=== PATIENT | female | born 1935 | race Caucasian/White ===

== ENCOUNTER 2019-06-28 12:37 | Outpatient (CLI) | payer MEDICARE, SELFPAY ==
--- NOTE | ~2019-06-28 | XR_ITS ---
XR chest 2V DATE: 06/28/2019 12:59 INDICATION: Cough, shortness of breath TECHNIQUE: PA and lateral views COMPARISON: 12/02/2018 AP and lateral chest FINDINGS: There are bibasilar infiltrates and/atelectasis and small pleural effusions, left greater t isaac right. The mid and upper lung peace are clear. Heart size appears within normal limits. No hilar or mediastinal enlargement is evident. Surgical clips overlie the right upper quadrant, consistent with cholecystectomy. Osteopenia. IMPRESSION: Bibasilar infiltrate and/atelectasis and small bilateral pleural effusions, left greater than right Reviewed, dictated and finalized at location A. IMPRESSION: Bibasilar infiltrate and/atelectasis and small bilateral pleural ef fusions, left greater than right
== END 2019-06-28 12:38 | disposition home or self-care (01) ==
PROVIDERS: PCP Family Medicine; Visit Provider Family Medicine
DX: R05 Cough (principal); R06.02 Shortness of breath; R91.8 Other nonspecific abnormal finding of lung field
CPT/HCPCS: 71046

== ENCOUNTER 2019-07-18 11:03 | Outpatient (CLI) | payer MEDICARE, SELFPAY ==
--- NOTE | ~2019-07-18 | XR_ITS ---
XR chest 2V 07/18/2019 11:57 Indication: Pleural effusion. Cough. Procedure: 2 view chest Comparison: Comparison to multiple prior studies sequentially, with oldest reviewed study dated 11/07. Findings: Left basilar airspace disease. Moderate left and small right pleural effusions. No pneumoth orax. No edema. Impression: 1: Left basilar airspace consolidation may represent atelectasis and/or pneumonia. 2: Bilateral pleural effusions, left greater than right. Reviewed, dictated and finalized at location A. Impression: 1: Left basilar airspace consolidation may represent atelectasis and/or pneumon ia. 2: Bilateral pleural effusions, left greater than right.
--- NOTE | ~2019-07-18 | CT_ITS ---
EXAMINATION:CT chest w con DATE: 07/18/2019 12:13 INDICATION: Cough. Pleural effusion. TECHNIQUE: Computed tomography (CT) of the chest was performed with 75 mL Omnipaque 350 intravenous c ontrast. Automated exposure control and iterative reconstruction technique were employed. The dose-le ngth product (DLP) was 187.01 mGy-cm. COMPARISON: CT abdomen and pelvis 12/02/2018 FINDINGS: There are small right and moderate-sized left pleural effusions. There is mild atelectasis bilaterally. There is a 5 mm nodule in left thyroid lobe, likely not clinically significant. The hear t size is normal. There is a small pericardial effusion with pericardial thickening. There are change s of cholecystectomy. There is severe thoracic and cervical spondylosis. IMPRESSION: 1. Small right and moderate-sized left pleural effusions, new from 12/02/2018. 2. Small pericardial effusion with pericardial thickening, new from 12/02/2018. Reviewed, dictated and finalized at location A.
[2019-07-18 12:03] LABS: Estimated Glomerular Filt Rate > 60
== END 2019-07-18 11:04 | disposition home or self-care (01) ==
PROVIDERS: PCP Family Medicine; Visit Provider Family Medicine
DX: J90 Pleural effusion, not elsewhere classified (principal)
CPT/HCPCS: 36415; 71046; 71260; Q9967

== ENCOUNTER 2019-07-22 11:05 | Inpatient (IN) | payer MEDICARE, SELFPAY ==
--- NOTE | ~2019-07-22 | XR_ITS ---
EXAMINATION: XR chest 1V portable DATE: 07/24/2019 05:28 INDICATION: Pleural effusions. TECHNIQUE: A single frontal view of the chest was obtained. COMPARISON: Chest 2 views 07/23/2019 FINDINGS: There are small pleural effusions. There are airspace opacities at the lung bases. No pneum othorax. The heart size is normal. IMPRESSION: 1. Stable small pleural effusions. 2. Stable airspace opacities at the lung bases, consistent with atelectasis or less likely pneumonia. Reviewed, dictated and finalized at location A.
--- NOTE | ~2019-07-22 | US_ITS ---
EXAMINATION: US thoracentesis DATE: 07/23/2019 15:00 INDICATION: pleural effusion TECHNIQUE: The procedure and its risks, benefits, and alternatives were discussed with the patient. P otential risks discussed included bleeding, infection, and pneumothorax. The patient understood the r isks and agreed to proceed. The skin was prepped and draped in sterile fashion. 1% lidocaine was used for local anesthesia. Under ultrasound guidance, a 5 Fr catheter with trochar was advanced into the left pleural effusion. Fluid was aspirated. The catheter was removed, and a dressing was applied. The re were no immediate complications. FINDINGS: Ultrasound images demonstrate a left pleural effusion and the catheter within the fluid. IMPRESSION: 1. Successful ultrasound-guided thoracentesis yielding 700 mL of ada-colored fluid. Reviewed, dictated and finalized at location A.
--- NOTE | ~2019-07-22 | CT_ITS ---
EXAMINATION: CTA chest PE protocol DATE: 07/22/2019 13:48 INDICATION: Shortness of breath. TECHNIQUE: Computed tomography angiography (CTA) of the chest was performed with 100 mL Omnipaque-350 intravenous contrast timed to evaluate the pulmonary arteries. Coronal maximum intensity projection 3D-reconstructions were created by the technologist. Automated exposure control and iterative reconst ruction technique were employed. The dose-length product was 383.32 mGy-cm. COMPARISON: Chest CT 07/18/2019 FINDINGS: There is mild scarring at the lung apices. There are small right and moderate-sized left pl eural effusions. There is mild atelectasis bilaterally. There is dependent passive atelectasis in lef t lower lobe. The heart size is normal. There is a small pericardial effusion with pericardial thicke marybel. There is no pulmonary embolus. There are changes of cholecystectomy. There is a 6 mm cyst in th e liver. There is severe cervical and thoracic spondylosis. IMPRESSION: 1. No pulmonary embolus. 2. Small right and moderate-sized left pleural effusions, stable from 07/18/2019. 3. Small pericardial effusion with pericardial thickening, stable from 07/18/2019. Reviewed, dictated and finalized at location A. IMPRESSION: 1. No pulmonary embolus. 2. Small right and moderate-sized left pleural effusions, stable from 07/18/2019 . 3. Small pericardial effusion with pericardial thickening, stable from 0.
--- NOTE | ~2019-07-22 | XR_ITS ---
EXAMINATION: XR chest 2V DATE: 07/23/2019 14:54 INDICATION: Left pleural effusion status post thoracentesis. TECHNIQUE: Frontal and lateral views of the chest were obtained. COMPARISON: Chest 2 views 07/22/2019, chest CT 07/22/2019 FINDINGS: There are small pleural effusions. There are airspace opacities at the lung bases with inte rval improvement, likely atelectasis. No pneumothorax. The heart size is normal. Surgical clips in th e right upper quadrant are likely from cholecystectomy. IMPRESSION: 1. Small pleural effusions with improvement on the left status post thoracentesis. Reviewed, dictated and finalized at location A. IMPRESSION: 1. Small pleural effusions with improvement on the left status post thoracentes is.
--- NOTE | ~2019-07-22 | XR_ITS ---
EXAMINATION: XR chest 2V DATE: 07/22/2019 11:40 INDICATION: Shortness of breath and cough TECHNIQUE: PA and lateral views of the chest are obtained. COMPARISON: 07/18/2019 FINDINGS: There are stable small right and moderate-sized left pleural effusions. There are also stab le airspace opacities of the lung bases. No pneumothorax is identified. The heart size is normal. Cho lecystectomy clips are noted in the right upper quadrant. There is severe thoracic spondylosis. IMPRESSION: 1. Stable moderate-sized left and small right pleural effusions. 2. Stable bibasilar airspace opacities, likely atelectasis. Reviewed, dictated and finalized at location A.
[2019-07-22 11:15] VITALS: BP 149/74; PULSE 93; RESP 20; TEMP 36.7; O2SAT 98
[2019-07-22 11:18] VITALS: O2SAT 98
--- NOTE | 2019-07-22 11:19 | ECG_ITS ---
Measurements Intervals [place] Rate: 91 P: 50 MS: 173 QRS: 7 QRSD: 88 T: 27 QT: 316 QTc: 390 Interpretive Statements SINUS RHYTHM BASELINE ARTIFACT- I, II, III, AVL, AVF, V4-V6 BORDERLINE ECG Electronically Signed On 07-22-2019 11:22:17 CDT by Angel Melendez D.O.
[2019-07-22 11:48] LABS: Basophils Absolute Auto 0.1 K/mm3 (0.0-0.1); Basophils Percent Auto 0.9 % (0.2-1.2); Eosinophils Absolute Auto 0.2 K/mm3 (0-0.3); Eosinophils Percent Auto 2.3 % (0-4.4); Hematocrit 38.1 % (37.0-47.0); Hemoglobin 12.7 g/dL (12.0-15.0); Immature Granulocyte Absolute 0.03 K/mm3 (0.00-0.031); Immature Granulocyte Percent A 0.5 % (0-0.5); Lymphocytes Percent Auto 21.6 % (18.3-44.2); Mean Corpuscular HGB Conc 33.3 g/dl (32-36); Mean Corpuscular Hemoglobin 31.2 pg (26-34); Mean Corpuscular Volume 93.6 fl (80-100); Mean Platelet Volume 9.8 fl (7.4-10.4); Monocytes Absolute Auto 0.9 K/mm3 (0.1-0.6); Monocytes Percent Auto 14.2 % (2.6-8.5); Neutrophils Absolute Auto 3.9 K/mm3 (1.3-6.7); Neutrophils Percent Auto 60.5 % (45.5-73.1); Platelet Count Result 344 k/mm3 (150-375); Red Blood Count 4.07 M/mm3 (4.2-5.4); Red Cell Distribution Width 12.4 % (11.5-14.5); White Blood Count 6.5 K/mm3 (4.5-10.0)
[2019-07-22 11:56] LABS: Prothrombin Time 12.8 Seconds (11.1-14.7)
[2019-07-22 11:57] LABS: Partial Thromboplastin Time 32.3 SECONDS (22.3-36.8)
[2019-07-22 12:01] LABS: Blood Urea Nitrogen 13 mg/dL (7-17); Calcium 9.1 mg/dL (8.4-10.2); Carbon Dioxide 29 mmol/L (22-30); Chloride 97 mmol/L (98-107); Estimated CRCL calculation 57 ml/min; Estimated Glomerular Filt Rate > 60; Glucose 99 mg/dL (65-105); Sodium 134 mmol/L (137-145)
[2019-07-22 12:12] LABS: NT Pro B Type Natriuretic Pept 253 PG/ML (5-100); Troponin I < 0.012 ng/mL (0.000-0.034)
--- NOTE | 2019-07-22 12:25 | PC.NURSE ---
called lab and added on a D Dimer
--- NOTE | 2019-07-22 12:32 | ED.GENADULT ---
HPI - General Adult General Chief complaint: Shortness of Breath/Dyspnea Stated complaint: SENT BY DR. FAY/ [facility] Time Seen by Provider: 07/22/19 12:17 History of Present Illness HPI narrative: Patient is a 83 y/o female complaining of mild SOB for shortness of breath for 1 week. She states that her SOB is worse with walk or other kind of exertion. She has no cough, fever, chest pain or leg swelling. She was told that she has some fluid. She states that she was diagnosed with pneumonia approximately 2 weeks ago. Related Data Home Medications Medication Instructions Recorded Confirmed simvastatin 20 mg tablet 20 mg PO DAILY 12/10/18 12/10/18 alendronate 70 mg PO WEEKLY 07/22/19 aspirin 325 mg PO DAILY 07/22/19 olmesartan [Benicar] 20 mg PO DAILY 07/22/19 simvastatin mg 07/22/19 Allergies Allergy/AdvReac Type Severity Reaction Status Date / Time amoxicillin Allergy Mild Rash Verified 07/22/19 11:19 Penicillins Allergy Unknown AMOXICILLIN Verified 07/22/19 11:19 Review of Systems Constitutional: Constitutional: Denies chills, Denies fever(s), Denies headache(s) and Denies weakness Eyes: Eyes: Denies blurry vision ENT: Denies headache(s) and Denies neck pain Cardiovascular: Cardiovascular: Denies chest pain and Reports dyspnea Respiratory: Respiratory: Denies cough and Reports dyspnea Gastrointestinal: Gastrointestinal: Denies abdominal pain, Denies diarrhea, Denies nausea and Denies vomiting Genitourinary: Genitourinary: Denies hematuria and Denies dysuria Musculoskeletal: Musculoskeletal: Denies back pain and Denies neck pain Neurologic: Denies headache(s) and Denies weakness FORMERLY [facility], 1928–1983 Past Medical History Medical History HLD (hyperlipidemia) HTN (hypertension) Pancreatitis Surgical History Surgical History Hx of tonsillectomy Family History Family History Other Family history of cardiovascular disease Family history of malignant neoplasm Social History Social History Smoking status: Never smoker Second hand tobacco smoke exposure: No Alcohol intake: never Exam Const: General: no acute distress and well developed Orientation/consciousness: oriented to person, oriented to place, oriented to time and patient oriented x3 HENMT: Head: normocephalic Ears: external ears normal General nose exam: Normal external nose present Eyes: General: appearance normal, both eyes and all related structures Conjunctivae: conjunctivae normal Neck: Neck: normal visual inspection and full ROM Chest: Chest palpation & inspection: normal inspection of the chest and no tenderness Resp: Effort & Inspection: normal respiratory effort Auscultation: clear to auscultation bilaterally Cardio: Rate: regular rate Rhythm: regular rhythm GI: GI Palp: No abdominal tenderness and Yes Soft to palpation Skin: General skin exam: normal color and turgor normal Neuro: General: oriented to person, oriented to place, oriented to time and patient oriented x3 Cognition (Neuro): normal cognition Extrem: General: normal to inspection, full ROM and no pedal edema Psych: Appearance: grossly normal Mental Status: mental status grossly normal Affect: normal affect Course Consultations Consultation #1: Discussed with Amanda, who agrees to admit to Dr. Avila Date: 07/22/19 Time: 14:38 Vital Signs Vital signs: Vital Signs Temperature 36.7 C 07/22/19 11:15 Pulse Rate 93 07/22/19 11:15 Respiratory Rate 07/22/19 11:15 Blood Pressure 149/74 H 07/22/19 11:15 Pulse Oximetry 98 07/22/19 11:15 Temperature 36.7 C 07/22/19 15:59 Pulse Rate 87 07/22/19 15:59 Respiratory Rate 07/22/19 15:59 Blood Pressure 136/89 07/22/19 15:59 Pulse Oximetry 97 07/22/19 15:59
[2019-07-22 13:17] LABS: D Dimer 3.27 ug/mL (<0.48)
[2019-07-22 15:59] VITALS: BP 136/89; PULSE 87; RESP 20; TEMP 36.7; O2SAT 97
[2019-07-22 16:48] VITALS: BP 120/70; PULSE 90; RESP 20; TEMP 36.7; O2SAT 96
[2019-07-22 17:30] VITALS: BMI 27.3
[2019-07-22 20:00] VITALS: PULSE 84
--- NOTE | 2019-07-22 20:27 | ADMGEN ---
This patient, Luna Iyer, was admitted to 3 [facility] Surg Room 311-01. Patient/family oriented to hospital policies and general routines including ID bracelet, bed and alarms, visiting hours, pain management, procedures, bathroom and other care routines, personal items, smoking policy, room service/diet, and visiting hours. Valuables list has been completed. Information on how to activate the Rapid Response Team has been discussed. Patient/Family are encouraged to report perceived risks to care and to ask questions if they do not understand what they are told or what they should do.
--- NOTE | 2019-07-22 20:45 | PM.IMHP ---
H&P: HPI History of Present Illness Chief complaint: Shortness of breath. Narrative: Luna Iyer is an 83-year-old female with hypertension, hyperlipidemia, asthma, psoriasis, and GERD who presented to the emergency department earlier this afternoon at the direction of her primary care provider for evaluation of shortness of breath. She notes mild shortness of breath for the past several weeks for which she has been seeing . On previous imaging, she was noted to have small bilateral pleural effusions and she was started on a diuretic, however repeat imaging showed enlarging left pleural effusion. Chest CT taken on 07/18/2019 showed a small right and moderate size left pleural effusions as well as a small pericardial effusion with pericardial thickening, all findings were new compared to prior imaging in November 2018. Over the past several days, she reports increasing shortness of breath, nonproductive cough, and orthopnea. With further questioning, she does mention a dull discomfort across the midsternum with deep inspiration, that seems to improve somewhat if she leans forward. She has no history of cardiac disease, liver disease, kidney disease, or malignancy. She denies fever, chills, and sweats. Appetite has been good and she denies nausea and vomiting. Weight has remained stable. No rashes or joint swelling/redness. Review of Systems Review of Systems: Narrative: Twelve systems were reviewed with pertinent positives and negatives as per HPI. Weight has remained stable. She has never had an abnormal mammogram. No history of colon polyps. She denies lower extremity edema. No recent travel. No history of venous thromboembolism. She denies nausea, vomiting, diarrhea. No dysuria or hematuria. She does have psoriasis that mainly affects her ankles. Except as documented, all other systems were reviewed and are negative. [facility] Past Medical History Medical History (Updated 07/22/19 @ 22:41 by Amanda Syed PA-C) Essential hypertension Gastroesophageal reflux disease Hyperlipidemia Osteoporosis Pancreatitis (~11/2018) Psoriasis Surgical History Surgical History (Updated 07/22/19 @ 22:42 by Amanda Syed PA-C) History of laparoscopic cholecystectomy (~09/2003) History of tonsillectomy Family History Family History Other Family history of cardiovascular disease Family history of malignant neoplasm Social History Social History (Updated 07/22/19 @ 20:39 by Amanda Syed PA-C) Social History: The patient lives in [place]. She is a lifelong nonsmoker. She drinks maybe 4 alcoholic beverages a week. No illicit substance use. She designates her son, Steve, as her surrogate decision maker and she wishes to be a full code. Smoking status: Never smoker Alcohol intake: current Drinks per week: 4 Substance use: never Gender identity (if verbalized by the patient): Female Spiritual care concerns: No Meds Home Medications and Allergies Home Medications Medication Instructions Recorded Confirmed Type simvastatin 20 mg tablet 20 mg PO DAILY 12/10/18 07/22/19 History esomeprazole magnesium 40 mg 40 mg PO DAILY #90 cap 02/14/19 07/22/19 Rx capsule,delayed release acetaminophen [Tylenol] 650 mg PO Q6H PRN 07/22/19 07/22/19 History mometasone [Asmanex HFA] 2 puff INHALATION Q12H 07/22/19 07/22/19 History olmesartan [Benicar] 20 mg PO DAILY 07/22/19 07/22/19 History Allergies Allergy/AdvReac Type Severity Reaction Status Date / Time amoxicillin Allergy Mild Rash Verified 07/22/19 11:19 Penicillins Allergy Unknown AMOXICILLIN Verified 07/22/19 11:19 Vital Signs Vital Signs - 24 hr 07/22/19 11:15 07/22/19 11:18 07/22/19 15:59 Temperature 98.0 F 98.0 F Pulse Rate 93 87 Respiratory Rate 20 20 Blood Pressure 149/74 H 136/89 Pulse Oximetry 98 98 97 07/22/19 16:48 Temperature 98.0 F Pulse Rate 90 Re
[2019-07-22 22:00] VITALS: BP 133/63; PULSE 82; RESP 18; TEMP 36.8; O2SAT 96
[2019-07-23] VITALS (9 sets, daily range): BP systolic 110–168; BP diastolic 57–70; PULSE 80–107; RESP 18–20; TEMP 36.2–36.8; O2SAT 94–98
--- NOTE | 2019-07-23 06:00 | ECHO_ITS ---
Patient Info Name: Luna Iyer Age: 83 years : 1935 Gender: Female Ht: 66 in Wt: 170 lbs BSA: 1.91 m2 HR: 82 bpm BP: 110 / 57 mmHg Heart Rhythm: Sinus Rhythm Technical Quality: Fair Exam Date: 07/23/2019 9:39 AM Exam Location: [facility] Pulmonary Patient Status: Inpatient Admit Date: 07/22/2019 Staff Ordering Physician: Yvette Tate MD [employer] Machine Setter: Mendez Garvin RDCS Attending Provider: Bibiana Barriga PA-C Referring Physician: Bebeto HOLM; Exam Type: CA echo doppler color flow Study Info Indications R06.02 - Shortness of breath Complete two-dimensional, color flow and Doppler transthoracic echocardiogram is performed with contrast to opacify the left ventricle and to improve the deliniation of the left ventricle endocardial borders. Contrast/Agitated Saline Contrast/Ag. Saline: Definity Amount: 1.00 ml Administered By: Allison Garrido RN Existing IV Access: Yes History/Risk Factors SOB, HTN, small pericardial effusion w/ thickened pericardium, Orthopnea. Summary 1. Left ventricular chamber dimension is normal. 2. Definity contrast administered improved wall motion interpretation. 3. Left ventricular systolic function is normal, estimated at 65-70%. 4. The left ventricular diastolic function is grade I diastolic dysfunction. 5. E/e' 14 is mildly elevated. 6. Right ventricular systolic function is reduced based on TAPSE 1.3 cm. 7. There is trace tricuspid valve regurgitation. 8. No pulmonary hypertension, estimated pulmonary arterial systolic pressure is 27 mmHg. 9. Normal inferior vena cava with <50% collapse upon inspiration consistent with elevated right atrial pressure, 5 mmHg. Left Ventricle Definity contrast administered improved wall motion interpretation. E/e' 14 is mildly elevated. Left ventricular chamber dimension is normal. Left ventricular systolic function is normal, estimated at 65-70%. The left ventricular diastolic function is grade I diastolic dysfunction. Right Ventricle Right ventricular systolic function is reduced based on TAPSE 1.3 cm. Right ventricular chamber dimension is not well visualized. Left Atria Left atrial chamber dimension is normal. Right Atria Right atrial chamber dimension is not well visualized. Aortic Valve The aortic valve is trileaflet. There is no aortic valve stenosis. There is no aortic valve regurgitation. Pulmonic Valve There is no pulmonic regurgitation. Mitral Valve There is no mitral valve stenosis. There is no mitral valve regurgitation. Tricuspid Valve There is trace tricuspid valve regurgitation. No pulmonary hypertension, estimated pulmonary arterial systolic pressure is 27 mmHg. Pericardium/Pleural There is no pericardial effusion. Inferior Vena Cava Normal inferior vena cava with <50% collapse upon inspiration consistent with elevated right atrial pressure, 5 mmHg. Aorta The aortic root size at the sinus of Valsalva is normal. Left Ventricular Outflow Tract Name Value Normal LVOT 2D LVOT Diameter 1.8 cm LVOT Doppler LVOT Peak G
[2019-07-23 06:33] LABS: Basophils Absolute Auto 0.1 K/mm3 (0.0-0.1); Eosinophils Absolute Auto 0.2 K/mm3 (0-0.3); Eosinophils Percent Auto 3.1 % (0-4.4); Hemoglobin 11.8 g/dL (12.0-15.0); Immature Granulocyte Absolute 0.03 K/mm3 (0.00-0.031); Immature Granulocyte Percent A 0.5 % (0-0.5); Lymphocytes Absolute Auto 1.26 K/mm3 (0.9-3.2); Mean Corpuscular HGB Conc 32.8 g/dl (32-36); Mean Corpuscular Hemoglobin 31.4 pg (26-34); Mean Corpuscular Volume 95.7 fl (80-100); Mean Platelet Volume 9.8 fl (7.4-10.4); Monocytes Absolute Auto 0.8 K/mm3 (0.1-0.6); Neutrophils Absolute Auto 3.4 K/mm3 (1.3-6.7); Neutrophils Percent Auto 59.4 % (45.5-73.1); Platelet Count Result 327 k/mm3 (150-375); Red Blood Count 3.76 M/mm3 (4.2-5.4); Red Cell Distribution Width 12.4 % (11.5-14.5); White Blood Count 5.7 K/mm3 (4.5-10.0)
[2019-07-23 06:41] LABS: INR 1.1; Prothrombin Time 13.5 Seconds (11.1-14.7)
[2019-07-23 06:48] LABS: Alanine Aminotransferase 10 U/L (4-35); Albumin Level 3.7 g/dL (3.5-5.1); Alkaline Phosphatase 48 U/L (38-126); Amylase 171 U/L (30-110); Aspartate Amino Transferase 18 U/L (14-36); Bilirubin,Total 0.4 mg/dL (0.2-1.3); Blood Urea Nitrogen 12 mg/dL (7-17); Calcium 8.5 mg/dL (8.4-10.2); Carbon Dioxide 28 mmol/L (22-30); Chloride 97 mmol/L (98-107); Estimated CRCL calculation 65 ml/min; Estimated Glomerular Filt Rate > 60; Glucose 97 mg/dL (65-105); Lactate Dehydrogenase 329 U/L (313-618); Potassium 3.8 mmol/L (3.4-5.0); Sodium 132 mmol/L (137-145)
[2019-07-23] MEDS: OLMESARTAN MEDOXOMIL 20 MG TABLET PO (08:14)
[2019-07-23] MEDS: PANTOPRAZOLE 40 MG TABLET PO (08:14)
[2019-07-23] MEDS: SIMVASTATIN 20 MG TABLET PO (08:15)
[2019-07-23] MEDS: PERFLUTREN LIPID MICROSPHERES 1.5 ML VIAL DILUTED TO 10 ML TOTAL VOLUME IV PUSH (10:16)
[2019-07-23 12:03] LABS: Free T4 Free Thyroxine Reflex 1.06 ng/dL (0.78-2.19)
[2019-07-23 12:59] LABS: Total Triiodothyronine (T3) 1.12 NG/ML (0.97-1.69)
--- NOTE | 2019-07-23 13:34 | PM.IMPN ---
Progress Note: A&P Assessment and Plan (1) Pleural effusion: Code(s): J90 - Pleural effusion, not elsewhere classified Status: Acute Assessment and Plan: Patient presents with worsening shortness of breath over the last few weeks being evaluated by PCP; persistent effusion despite diuretic recently prescribed by PCP. She also just completed a 10-day course of levaquin and a prednisone taper. CTA chest demonstrated small right and moderate left pleural effusions, no PE. Thoracentesis this afternoon and Lasix IV daily; monitor I&Os and renal function. All other pleural fluid studies are pending but pH is within normal limits. Obtain repeat CXR in AM to ensure fluid is not rapidly accumulating; otherwise if she remains stable anticipate possible discharge tomorrow. (2) Pericardial effusion: Code(s): I31.3 - Pericardial effusion (noninflammatory) Status: Ruled-out Assessment and Plan: Echocardiogram demonstrates no pericardial effusion. No EKG changes. No evidence of tamponade; hemodynamics are stable. (3) Essential hypertension: Code(s): I10 - Essential (primary) hypertension Status: Acute Assessment and Plan: Last . Maintained on home olmesartan and now with Lasix; monitor BP and adjust treatment if needed. Hydralazine PRN added if needed. (4) Hyperlipidemia: Code(s): E78.5 - Hyperlipidemia, unspecified Status: Acute Assessment and Plan: Continue home statin therapy. LFTs are within normal limits. (5) Gastroesophageal reflux disease: Code(s): K21.9 - Gastro-esophageal reflux disease without esophagitis Status: Acute Assessment and Plan: No issues today. Continue protonix. Subjective Date/time seen: 07/23/19 13:00 Interval history: Ms. Iyer is an 83yo F admitted for shortness of breath with pleural effusions. She reports feeling more short of breath when up walking and says she feels better when the oxygen is on. She denies any chest pain. She is hungry having been NPO for thoracentesis today, but denies any nausea or vomiting. Review of Systems Review of Systems: Narrative: Twelve systems were reviewed with pertinent positives and negatives as per HPI. Exam Narrative: Exam Narrative: General: Female resting comfortably in bed in no acute distress. HEENT: Normocephalic, EOMI, oral mucosa moist. Cardiovascular: Rate and rhythm are regular. Respiratory: Decreased breath sounds DIPAK. Respirations are even and nonlabored. Abdomen: Soft, non-tender, non-distended, bowel sounds present. Extremities: Peripheral pulses intact. No edema. Neuro: No focal neurological deficits. Speech is clear. Objective Data Vital Signs Vital Signs: Last Vital Signs Temp 98.2 F 07/23/19 14:00 Pulse 107 H 07/23/19 14:56 Resp 19 07/23/19 14:56 BP 168/69 H 07/23/19 14:56 Pulse Ox 96 07/23/19 14:56 Intake/Output Intake/Output: Intake & Output 07/20/19 07/21/19 07/22/19 07/23/19 23:59 23:59 23:59 23:59 Intake Total 0 170 Output Total 175 Balance 0 -5 Meds/Results Medications: Active Medications Generic Name Dose Route Start Last Admin Trade Name Freq PRN Reason Stop Dose Admin Acetaminophen 650 mg 07/22/19 20:42 Tylenol Tablet PO Q6H PRN Pain (Scale Score 1-3) Fluticasone Propionate 2 puff 07/23/19 08:00 07/23/19 08:20 Flovent 110 Mcg INHALATION 2 puff Q12HRT ALLISON Administration Olmesartan 20 mg 07/23/19 09:00 07/23/19 08:14 Benicar PO 20 mg DAILY ALLISON Administration Pantoprazole Sodium 40 mg 07/23/19 09:00 07/23/19 08:14 Protonix PO 40 mg QAM ALLISON Administration Simvastatin 20 mg 07/23/19 09:00 07/23/19 08:15 Zocor PO 20 mg DAILY ALLISON Administration Radiology Results: ITS Impr
--- NOTE | 2019-07-23 14:22 | PC.NURSE ---
To Radiology per [[facility] ]
[2019-07-23 15:00] LABS: pH Pleural Fluid 7.488 (7.210-7.500)
[2019-07-23 16:30] LABS: Appearance Pleural Fluid Cloudy (Clear); Color Pleural Fluid Yellow (Colorless); Lymphocytes Pleural Fluid 80 %; Macrophages Pleural Fluid 1 %; Mesothelial Cells Pleural Flui 3 %; Monocytes Pleural Fluid 7 %; Neutrophils Pleural Fluid 9 % (0-25); Nucleated Cell Pleural Fluid 1042 /uL (0-1000); Pleural fluid source Pleural fluid; RBC Pleural Fluid 6623 /uL (0-0)
[2019-07-23] MEDS: FUROSEMIDE INJ 40 MG/4 ML VIAL IV PUSH (18:18)
--- NOTE | 2019-07-23 20:04 | PC.NURSE ---
Return from Radiology per STRETCHER TOLERATE PROCEDURE WELL. BANDAID INTACT AND DRY TO LEFT BACK. PT STATES SHE CAN BREATHE BETTER . [ ]
[2019-07-24] VITALS: PULSE 94
[2019-07-24 04:00] VITALS: PULSE 86
[2019-07-24 06:00] VITALS: BP 156/59; PULSE 82; RESP 18; TEMP 36.3; O2SAT 95
[2019-07-24 06:50] LABS: Blood Urea Nitrogen 12 mg/dL (7-17); Calcium 8.3 mg/dL (8.4-10.2); Carbon Dioxide 30 mmol/L (22-30); Chloride 97 mmol/L (98-107); Estimated CRCL calculation 50 ml/min; Estimated Glomerular Filt Rate > 60; Glucose 112 mg/dL (65-105); Magnesium 1.9 mg/dL (1.6-2.3); Phosphorus 4.1 mg/dL (2.5-4.5); Potassium 3.5 mmol/L (3.4-5.0); Sodium 132 mmol/L (137-145)
[2019-07-24 08:00] VITALS: PULSE 82; PULSE 84; RESP 18; O2SAT 95
[2019-07-24] MEDS: ACETAMINOPHEN 325 MG TABLET 650 MG PO (08:05)
[2019-07-24] MEDS: PANTOPRAZOLE 40 MG TABLET PO (08:07)
[2019-07-24] MEDS: SIMVASTATIN 20 MG TABLET PO (08:07)
[2019-07-24] MEDS: OLMESARTAN MEDOXOMIL 20 MG TABLET PO (08:07)
[2019-07-24] MEDS: FUROSEMIDE INJ 40 MG/4 ML VIAL IV PUSH (08:07)
--- NOTE | 2019-07-24 11:07 | PM.DS ---
DS: Admitting Diagnosis Admitting Diagnosis Admitting Diagnosis: Pleural effusion, not elsewhere classified DS: Discharge Diagnosis Discharge Diagnosis (1) Pleural effusion: Code(s): J90 - Pleural effusion, not elsewhere classified Status: Acute Assessment and Plan: Date of Service 07/24/19 Ms. Iyer is an 83yo F with history of hypertension, hyperlipidemia, and GERD who presented to the ED for evaluation of worsening shortness of breath over the last few weeks. She had been undergoing evaluation for this by her PCP and recently completed a course of Levaquin and prednisone taper. CTA chest demonstrated small right and moderate left pleural effusions despite being prescribed HCTZ by PCP. She underwent ultrasound-guided thoracentesis 07/23/19 which yielded 700 mL of ada colored fluid. Gram stain of the pleural fluid was negative, but showed moderate white blood cells, pH was within normal limits. Repeat chest x-ray this morning demonstrated stable bilateral small pleural effusions. Initially there was concern for pericardial effusion, but echocardiogram demonstrated no pericardial effusion. Echocardiogram detailed below. No EKG changes noted. She was also maintained on Lasix daily, which she can continue for the next week and follow-up with PCP. She was stable and tolerating room air. She was feeling improved after thoracentesis and was hemodynamically stable for discharge 07/24/19 with instructions to follow-up with PCP within 1 week. Patient presents with worsening shortness of breath over the last few weeks being evaluated by PCP; persistent effusion despite diuretic recently prescribed by PCP. She also just completed a 10-day course of levaquin and a prednisone taper. CTA chest demonstrated small right and moderate left pleural effusions, no PE. Underwent thoracentesis and treated with Lasix. (2) Pericardial effusion: Code(s): I31.3 - Pericardial effusion (noninflammatory) Status: Ruled-out Assessment and Plan: Echocardiogram demonstrates no pericardial effusion. No EKG changes. No evidence of tamponade; hemodynamics are stable. (3) Essential hypertension: Code(s): I10 - Essential (primary) hypertension Status: Acute Assessment and Plan: Blood pressure on her home ARB, last BP 156/59. (4) Hyperlipidemia: Code(s): E78.5 - Hyperlipidemia, unspecified Status: Acute Assessment and Plan: Continue home statin therapy. LFTs are within normal limits. (5) Gastroesophageal reflux disease: Code(s): K21.9 - Gastro-esophageal reflux disease without esophagitis Status: Acute Assessment and Plan: No issues today. Continue protonix. DS: Summary Time Spent with Patient Time attestation: Total time spent providing and/or coordinating discharge services: 35 minutes Exam Narrative: Exam Narrative: Last Vital Signs Temp 97.3 F L 07/24/19 06:00 Pulse 84 07/24/19 08:00 Resp 18 07/24/19 08:00 BP 156/59 H 07/24/19 06:00 Pulse Ox 95 07/24/19 08:00 General: Female resting comfortably in bed in no acute distress. HEENT: Normocephalic, EOMI, oral mucosa moist. Cardiovascular: Rate and rhythm are regular. Respiratory: Decreased breath sounds DIPAK. Respirations are even and nonlabored. Abdomen: Soft, non-tender, non-distended, bowel sounds present. Extremities: Peripheral pulses intact. No edema. Neuro: No focal neurological deficits. Speech is clear. DS: Data Data Completed and Pending Pending studies at discharge: Pending at discharge 07/22/19 20:44 Cytology [PTH] Routine Labs on day of discharge
[2019-07-26 12:44] LABS: Glucose Pleural Fluid 100 mg/dL; LDH Pleural Fluid 197 U/L; Total Protein Pleural Fluid 4.2 g/dL
[2019-07-26 13:11] LABS: Amylase, Pleural Fluid 41 U/L
[2019-07-26 15:06] LABS: Albumin Pleural Fluid 2.9 g/dL
== END 2019-07-24 11:45 | disposition home or self-care (01) | DRG 188 ==
LOC: ANHED 16:10 → ANH3MEDSUR 16:30
PROVIDERS: Physician Assistant; Admitting Provider Family Medicine; Emergency Provider Emergency Medicine; PCP Family Medicine; Visit Provider Internal Medicine
DX: J90 Pleural effusion, not elsewhere classified (principal); I10 Essential (primary) hypertension; E78.5 Hyperlipidemia, unspecified; K21.9 Gastro-esophageal reflux disease without esophagitis; M81.0 Age-related osteoporosis without current pathological fracture; L40.9 Psoriasis, unspecified; J45.909 Unspecified asthma, uncomplicated; Z90.49 Acquired absence of other specified parts of digestive tract
CPT/HCPCS: 32555; 36415; 71045; 71046; 71275; 80048; 80053; 82042; 82150; 82945; 83615; 83735; 83880; 83986; 84100; 84157; 84439; 84443; 84478; 84480; 84484; 85025; 85380; 85610; 85730; 87070; 87075; 87205; 88104; 88108; 88305; 89051; 93005; 93306; 94640; 96374; 99285; A9270; G0378; J1940; Q9957; Q9967

== ENCOUNTER 2019-08-26 07:24 | Outpatient (CLI) | payer MEDICARE, SELFPAY ==
--- NOTE | ~2019-08-26 | XR_ITS ---
EXAMINATION: XR chest 2V DATE: 08/26/2019 07:42 INDICATION: Pleural effusion, not elsewhere classified. TECHNIQUE: Frontal and lateral views of the chest were obtained. COMPARISON: Chest single view 07/24/2019, chest CT 07/22/2019 FINDINGS: There is a small left pleural effusion. There are airspace opacities at the lung bases. No pneumothorax. The heart size is normal. IMPRESSION: 1. Stable small left pleural effusion. 2. Airspace opacities at the lung bases, consistent with atelectasis or less likely pneumonia. Reviewed, dictated and finalized at location A. IMPRESSION: 1. Stable small left pleural effusion. 2. Airspace opacities at the lung bases, consistent with atelectasis or less li ricky pneumonia.
[2019-08-26 08:06] LABS: Alanine Aminotransferase 13 U/L (4-35); Albumin Level 4.1 g/dL (3.5-5.1); Alkaline Phosphatase 49 U/L (38-126); Aspartate Amino Transferase 22 U/L (14-36); Bilirubin,Total 0.4 mg/dL (0.2-1.3); Blood Urea Nitrogen 13 mg/dL (7-17); Calcium 8.5 mg/dL (8.4-10.2); Carbon Dioxide 28 mmol/L (22-30); Chloride 97 mmol/L (98-107); Estimated Glomerular Filt Rate > 60; Glucose 103 mg/dL (65-105); Potassium 3.8 mmol/L (3.4-5.0); Sodium 133 mmol/L (137-145)
== END 2019-08-26 07:25 | disposition home or self-care (01) ==
PROVIDERS: PCP Family Medicine; Visit Provider Family Medicine
DX: J90 Pleural effusion, not elsewhere classified (principal); Z51.81 Encounter for therapeutic drug level monitoring; Z79.899 Other long term (current) drug therapy; R91.8 Other nonspecific abnormal finding of lung field
CPT/HCPCS: 36415; 71046; 80053

== ENCOUNTER 2020-09-28 10:06 | Emergency (ER) | payer MEDICARE, SELFPAY ==
[2020-09-28 10:35] VITALS: BP 155/61; PULSE 79; RESP 20; TEMP 36.3; O2SAT 98
--- NOTE | 2020-09-28 11:06 | ED.SKABFB ---
HPI - Skin/Abscess/Foreign Bdy General Chief complaint: Skin/Abscess/Foreign Body Stated complaint: rash Time Seen by Provider: 09/28/20 11:06 Source: patient and RN notes reviewed Mode of arrival: ambulatory Limitations: no limitations History of Present Illness HPI narrative: 84-year-old female presents to the [facility] with complaints of a rash. Rash to her back. States has been there for several weeks. States that she went to a doctor when visiting her daughter and received a shot and some oral steroids along with topical steroid triamcinolone. Patient describes it as being very itchy, worse at night. Denies any new ointments, lotions, detergents. Denies staying at hotels, stayed with her daughter. Denies any lip or tongue swelling. No shortness of breath, chest pain. MD complaint: rash Related Data Home Medications Medication Instructions Recorded Confirmed Asmanex HFA 2 puff INHALATION Q12H 07/22/19 09/28/20 acetaminophen [Tylenol] 650 mg PO Q6H PRN 07/22/19 07/22/19 alprazolam [Xanax] 0.25 mg PO TID PRN 09/28/20 09/28/20 cyclobenzaprine [Flexeril] 5 mg PO TID PRN 09/28/20 09/28/20 losartan 50 mg PO DAILY 09/28/20 09/28/20 tramadol 50 mg PO HS 09/28/20 09/28/20 Allergies Allergy/AdvReac Type Severity Reaction Status Date / Time amoxicillin Allergy Mild Rash Verified 09/28/20 10:59 Penicillins Allergy Unknown AMOXICILLIN Verified 09/28/20 10:59 Review of Systems Review of Systems: All systems reviewed & are unremarkable except as noted in HPI and below Constitutional: Constitutional: Reports no additional constitutional complaints, Denies chills and Denies fever(s) Eyes: Eyes: Reports no additional eye complaints ENT: Reports system reviewed and no additional complaints, except as documented Cardiovascular: Cardiovascular: Reports no additional cardiovascular complaints Respiratory: Respiratory: Reports no additional respiratory complaints Musculoskeletal: Musculoskeletal: Reports no additional musculoskeletal complaints Integumentary/Breasts: Skin/Breast: Reports as per HPI, Reports pruritus, Denies erythema and Reports rash Neurologic: Reports system reviewed and no additional complaints, except as documented Psychiatric: Psychiatric: Reports no additional psychiatric complaints Allergic/Immunologic: Allergic/Immunologic: Reports no additional allergic/immunologic complaints PMF Past Medical History Medical History (Updated 10/01/20 @ 10:32 by Alis Garcia) Essential hypertension Gastroesophageal reflux disease Hyperlipidemia Osteoporosis Pancreatitis (~11/2018) Psoriasis Psoriasis Surgical History Surgical History History of laparoscopic cholecystectomy (~09/2003) History of tonsillectomy Family History Family History Other Family history of cardiovascular disease Family history of malignant neoplasm Social History Social History Social History: The patient lives in [place]. She is a lifelong nonsmoker. She drinks maybe 4 alcoholic beverages a week. No illicit substance use. She designates her son, Steve, as her surrogate decision maker and she wishes to be a full code. Smoking status: Never smoker Alcohol intake: current Drinks per week: 4 Substance use: never Gender identity (if verbalized by the patient): Female Spiritual care concerns: No Comments At the time of my signature, I reviewed and agree with the nursing past medical, surgical, social, and family history. There is no relevant family history pertinent to the patient complaint. Exam Const: General: no acute distress, alert and ill appearing chronically Nutritional Appearance: well nourished Orientation/consciousness: patient oriented x3 Limitations: no limitations HENMT: Head: normal to inspection Ears: external ears normal, TM's nor
== END 2020-09-28 11:25 | disposition home or self-care (01) ==
PROVIDERS: Emergency Provider Nurse Practitioner; PCP Family Medicine
DX: L25.9 Unspecified contact dermatitis, unspecified cause (principal); I10 Essential (primary) hypertension; K21.9 Gastro-esophageal reflux disease without esophagitis; M81.0 Age-related osteoporosis without current pathological fracture
CPT/HCPCS: 99213; G0463

== ENCOUNTER → 2020-11-27 11:38 | Outpatient (CLI) | payer MEDICARE, SELFPAY ==
--- NOTE | ~2020-11-27 | XR_ITS ---
EXAMINATION: XR knee RT 3V DATE: 11/27/2020 12:21 INDICATION: Sprain of unspecified site of unspecified knee. Right knee pain. TECHNIQUE: 3 views of right knee were obtained. COMPARISON: None. FINDINGS: Bone alignment is normal. No fracture. There is mild tricompartmental osteoarthritis correc walt by tiny marginal osteophytes. No joint space narrowing. There is a small knee joint effusion. IMPRESSION: 1. Mild right knee osteoarthritis. 2. Small right knee joint effusion. Reviewed, dictated and finalized at location A.
== END ==
PROVIDERS: PCP Family Medicine; Visit Provider Physician Assistant
DX: M17.11 Unilateral primary osteoarthritis, right knee (principal); M25.461 Effusion, right knee
CPT/HCPCS: 73562

== ENCOUNTER 2023-05-29 09:25 | Inpatient (IN) | payer MEDICARE, SELFPAY ==
[2023-05-29] VITALS (20 sets, daily range): BP systolic 94–157; BP diastolic 55–82; PULSE 89–97; RESP 12–26; TEMP 36.3–37.4; O2SAT 94–100
--- NOTE | ~2023-05-29 | CT_ITS ---
EXAMINATION: CT brain wo con DATE: 05/29/2023 12:36 INDICATION: Fall. TECHNIQUE: Computed tomography (CT) of the head was performed without intravenous contrast. The mA wa s adjusted according to patient size. Iterative reconstruction technique was employed. The dose-lengt h product was 1210.67 mGy-cm. COMPARISON: None FINDINGS: There are scattered areas of low attenuation in the cerebral white matter, which is within normal limits for the patient's age. There is no intracranial hemorrhage, acute infarction, or abnorm al intracranial mass lesion. The ventricles are normal in size. There are likely changes of ocular le ns replacement surgeries. There is mild mucosal thickening in the paranasal sinuses. There is a trace right mastoid effusion. There is cerumen in left external auditory canal. IMPRESSION: 1. Normal aging brain. Reviewed, dictated and finalized at location E. IMPRESSION: 1. Normal aging brain.
--- NOTE | ~2023-05-29 | XR_ITS ---
EXAMINATION: XR surgery orthopedic DATE: 05/29/2023 15:10 CDT INDICATION: RIGHT HIP PINNING . TECHNIQUE: 2 fluoroscopic images of the right hip were obtained during right hip pinning, performed b ankur Harper MD. I was not present during the procedure. Fluoroscopy exposure time was 1 stevie te 17.5 seconds. Air Kerma 30.869 mGy. DAP 0.61-0 mGym2. COMPARISON: None FINDINGS/IMPRESSION: Fluoroscopic documentation of right hip pinning. Please refer to the operative note for complete proc edural details . Reviewed, dictated and finalized at location K.
--- NOTE | ~2023-05-29 | XR_ITS ---
XR chest 1V 05/29/2023 12:58 Indication: Shortness of breath Procedure: AP view of the chest Comparison: No prior studies for comparison. Findings: Heart size is normal. No focal air space disease, pulmonary edema, pleural effusion or susp ected pneumothorax. No acute osseous abnormality. Impression: 1: No acute cardiopulmonary disease. Reviewed, dictated and finalized at location B. Impression: 1: No acute cardiopulmonary disease.
--- NOTE | ~2023-05-29 | XR_ITS ---
EXAMINATION: XR hip BI 2V w AP pelvis DATE: 05/29/2023 12:58 INDICATION: Right hip pain post fall TECHNIQUE: Anteroposterior view of the pelvis and anteroposterior and cross-table lateral views of th e right hip and anteroposterior and frog-leg lateral views of the right hip and were obtained. COMPARISON: None. FINDINGS: Laterally impacted subcapital fracture of the proximal right femur with 15 degree varus angulation. N o other fractures identified. Bilateral hip and sacroiliac joint spaces appear relatively preserved. Soft tissues are unremarkable. IMPRESSION: 1. 15 degrees varus angulation and lateral impaction of a nondisplaced subcapital fracture of the pro ximal right femur. Reviewed, dictated and finalized at location A. IMPRESSION: 1. 15 degrees varus angulation and lateral impaction of a nondisplaced subcapit al fracture of the proximal right femur.
--- NOTE | ~2023-05-29 | XR_ITS ---
EXAMINATION: XR abdomen/kub 1V DATE: 05/31/2023 16:46 INDICATION: Constipation. TECHNIQUE: A supine view of the abdomen on 3 radiographs was obtained. COMPARISON: Abdomen radiograph 12/04/2018 FINDINGS: There are no dilated loops of bowel. There is a small volume of stool in the colon. There i s screw fixation of proximal right femur. Surgical clips in the right upper quadrant are likely from cholecystectomy. IMPRESSION: 1. Normal bowel gas pattern. Reviewed, dictated and finalized at location E.
--- NOTE | 2023-05-29 12:29 | ED.GENADULT ---
HPI - General Adult General Chief complaint: Fall Stated complaint: fell 05/26 co R hip pain Time Seen by Provider: 05/29/23 11:33 History of Present Illness HPI narrative: Luna Iyer is an 87 y/o female who presents today with complaints of right hip pain. She stats she had a ground level fall 2 days ago. She tripped and fell, + hitting her head, no LOC. She states she hasn't been able to put weight on her right leg since the fall. She also is complaining of a headache since the fall. 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 Essential hypertension Gastroesophageal reflux disease Hyperlipidemia Iron deficiency Left hip pain Lower respiratory tract infection Lumbar spine pain Osteoporosis Pancreatitis (~11/2018) Pericardial effusion Pleural effusion Pleural effusion Psoriasis Psoriasis Right knee DJD Right knee pain Trochanteric bursitis, left hip Surgical History Surgical History History of laparoscopic cholecystectomy (~09/2003) History of tonsillectomy History of tubal ligation Family History Family History Other Family history of cardiovascular disease Family history of malignant neoplasm Social History Social History Social History: The patient lives in [place]. She is a lifelong nonsmoker. She drinks maybe 4 alcoholic beverages a week. No illicit substance use. She designates her son, Steve, as her surrogate decision maker and she wishes to be a full code. Smoking status: Never smoker Alcohol intake: never Substance use: never Do You Feel Safe in your Home?: Yes Lack of Transportation: No Lack of Food: Never True Current Housing: I Have Housing Concerned About Future Housing: No Difficulty Paying Gas/Electric Bills: No Difficulty Paying for Meds: No Currently Unemployed: No Education: High School Diploma/GED Difficulty w/ Childcare or Family Care: No Living arrangements: alone Occupation/Education: retired Gender identity (if verbalized by the patient): Female Spiritual care concerns: No Exam Narrative: GENERAL: Well-appearing, well-nourished, and in no acute distress. HEAD: Normocephalic, atraumatic. EYES: PERRLA and EOMI. ENT: Nares clear, no rhinorrhea or epistaxis. Mucous membranes moist. Oropharynx without tonsillar hypertrophy exudate or other lesions. NECK: Supple. No adenopathy or masses. No carotid bruits or JVD CHEST: Clear to auscultation. No respiratory distress. No wheezes rales or rhonchi HEART: Regular rate and rhythm. No murmur heard. Normal peripheral pulses. ABDOMEN: Soft, nontender, nondistended, normal active bowel sounds. EXTREMITIES: no obvious deformity noted while sitting in chair. distal pulses present SKIN: Warm, dry, no rash. NEURO: No focal deficits. Alert and oriented x3. PSYCH: Normal mood and affect. Course Vital Signs Vital signs: Vital Signs Temperature 36.8 C 05/29/23 09:45 Pulse Rate 93 05/29/23 09:45 Respiratory Rate 18 05/29/23 09:45 Blood Pressure 129/82 05/29/23 09:45 Pulse Oximetry 96 05/29/23 09:45 Oxygen Delivery Room Air 05/29/23 09:45 Temperature 36.3 C L 05/29/23 16:20 Pulse Rate 94 05/29/23 17:45 Respiratory Rate 17 05/29/23 17:45 Blood Pressure 157/79 H 05/29/23 17:45 Puls
[2023-05-29] MEDS: fentaNYL CITRATE INJ (*CRX) 100 MCG/2 ML VIAL 50 MCG IV PUSH (13:42)
[2023-05-29 13:46] LABS: Basophils Absolute Auto 0.1 K/mm3 (0.0-0.1); Basophils Percent Auto 1.1 % (0.2-1.2); Eosinophils Absolute Auto 0.3 K/mm3 (0-0.3); Eosinophils Percent Auto 2.4 % (0-4.4); Hematocrit 40.4 % (37.0-47.0); Hemoglobin 13.2 g/dL (12.0-15.0); Immature Granulocyte Absolute 0.07 K/mm3 (0.00-0.031); Immature Granulocyte Percent A 0.6 % (0-0.5); Lymphocytes Absolute Auto 1.32 K/mm3 (0.9-3.2); Lymphocytes Percent Auto 10.7 % (18.3-44.2); Mean Corpuscular HGB Conc 32.7 g/dl (32-36); Mean Corpuscular Hemoglobin 31.5 pg (26-34); Mean Corpuscular Volume 96.4 fl (80-100); Mean Platelet Volume 9.5 fl (7.4-10.4); Monocytes Absolute Auto 1.3 K/mm3 (0.1-0.6); Monocytes Percent Auto 10.7 % (2.6-8.5); Neutrophils Absolute Auto 9.1 K/mm3 (1.3-6.7); Neutrophils Percent Auto 74.5 % (45.5-73.1); Platelet Count Result 273 k/mm3 (150-375); Red Blood Count 4.19 M/mm3 (4.2-5.4); Red Cell Distribution Width 13.2 % (11.5-14.5); White Blood Count 12.3 K/mm3 (4.5-10.0)
[2023-05-29] MEDS: LACTATED RINGERS 1,000 ML 30 ML IV CONT ×2 (14:30→17:14)
--- NOTE | 2023-05-29 14:48 | WPDANESEPPF ---
Anes - Initial Pre Proc Eval Procedure: Operation Date: 05/29/23 15:00 Proposed Procedures p Right Hip Pinning - Maury Harper MD Date/Time: 05/29/23 14:48 Surgeon: Maury Harper MD Pre Op Diagnosis: fell 05/26 co R hip pain Patient Data Age: 87 Gender: F Height: 1.57 m Weight: 72 kg Last Vital Signs Temp 36.6 C 05/29/23 13:47 Pulse 89 05/29/23 14:01 Resp 26 H 05/29/23 14:01 BP 155/73 H 05/29/23 14:01 Pulse Ox 94 05/29/23 14:01 O2 Del Method Room Air 05/29/23 09:45 Allergies Allergy/AdvReac Type Severity Reaction Status Date / Time amoxicillin Allergy Mild Rash Verified 05/29/23 09:26 Penicillins Allergy Unknown AMOXICILLIN Verified 05/29/23 09:26 Home Medications Medication Instructions Recorded Confirmed Type losartan 50 mg tablet 50 mg PO DAILY #90 tabs 09/27/22 05/29/23 Rx esomeprazole magnesium 40 mg 40 mg PO DAILY #90 caps 10/11/22 05/29/23 Rx capsule,delayed release simvastatin 20 mg tablet 20 mg PO DAILY #90 tabs 12/30/22 05/29/23 Rx Laboratory Tests 05/29/23 05/29/23 13:37 13:38 WBC 12.3 H K/mm3 (4.5-10.0) RBC 4.19 L M/mm3 (4.2-5.4) Hgb 13.2 g/dL (12.0-15.0) Hct 40.4 % (37.0-47.0) MCV 96.4 fl (80-100) MCH 31.5 pg (26-34) MCHC 32.7 g/dl (32-36) RDW 13.2 % (11.5-14.5) Plt Count 273 k/mm3 (150-375) MPV 9.5 fl (7.4-10.4) Immature Gran % (Auto) 0.6 H % (0-0.5) Neut % (Auto) 74.5 H % (45.5-73.1) Lymph % (Auto) 10.7 L % (18.3-44.2) [place] % (Auto) 10.7 H % (2.6-8.5) Eos % (Auto) 2.4 % (0-4.4) Baso % (Auto) 1.1 % (0.2-1.2) Lymph # (Auto) 1.32 K/mm3 (0.9-3.2) [place] # (Auto) 1.3 H K/mm3 (0.1-0.6) Eos # (Auto) 0.3 K/mm3 (0-0.3) Baso # (Auto) 0.1 K/mm3 (0.0-0.1) Abs Immat Gran (auto) 0.07 H K/mm3 (0.00-0.031) Absolute Neuts (auto) 9.1 H K/mm3 (1.3-6.7) Absolute Nucleated RBC 0.000 K/mm3 (0.0-0.012) Nucleated RBC % 0.0 % (0.0-0.2) PT 14.0 Seconds (11.1-14.7) INR 1.0 APTT 31.0 Seconds (22.3-36.8) Sodium Pending Potassium Pending Chloride Pending Carbon Dioxide Pending Anion Gap Pending BUN Pending Creatinine Pending Estim Creat Clear Calc Pending Estimated GFR Pending Glucose Pending Calcium Pending Total Bilirubin Pending AST Pending ALT Pending Alkaline Phosphatase Pending Total Protein Pending Albumin Pending Blood Type O Positive Antibody Screen Negative Patient hx anesthesia problems: none Family hx anesthesia problems: none Results Review: All pre-operative results and documents have been reviewed as part of the pre-operative evaluation. 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 Essential hypertension Gastroesophageal reflux disease Hyperlipidemia Iron deficiency Left hip pain Lower respiratory tract infection Lumbar spine pain Osteoporosis Pancreatitis (~11/2018) Pericardial effusion Pleural effusion Pleural effusion Psoriasis Psoriasis Right knee DJD Right knee pain Trochanteric bursitis, left hip Surgical History Surgical History History of laparoscopic cholecystectomy (~09/2003) History of tonsillectomy History of tubal ligation Family History Family History Other Family history of cardiovascular disease Family history of malignant neoplasm Social History Social History Social History:
[2023-05-29] MEDS: KETOROLAC 15 MG/ML VIAL (*BKC) IV PUSH (14:56)
[2023-05-29] MEDS: ACETAMINOPHEN 500 MG TABLET 1000 MG PO (14:56)
--- NOTE | 2023-05-29 15:00 | PM.IMHP ---
H&P: HPI History of Present Illness Date/Time: 05/29/23 15:00 Chief Complaint: Right Hip subcapital Fracture Review of Systems Review of Systems: All systems reviewed & are unremarkable except as noted in HPI and below PMFSH Past Medical History Medical History Breath shortness Contact dermatitis Degenerative joint disease of left hip DJD (degenerative joint disease) of knee Essential hypertension Gastroesophageal reflux disease Hyperlipidemia Iron deficiency Left hip pain Lower respiratory tract infection Lumbar spine pain Osteoporosis Pancreatitis (~11/2018) Pericardial effusion Pleural effusion Pleural effusion Psoriasis Psoriasis Right knee DJD Right knee pain Trochanteric bursitis, left hip Surgical History Surgical History History of laparoscopic cholecystectomy (~09/2003) History of tonsillectomy History of tubal ligation Family History Family History Other Family history of cardiovascular disease Family history of malignant neoplasm Social History Social History Social History: The patient lives in [place]. She is a lifelong nonsmoker. She drinks maybe 4 alcoholic beverages a week. No illicit substance use. She designates her son, Steve, as her surrogate decision maker and she wishes to be a full code. Smoking status: Never smoker Alcohol intake: never Substance use: never Do You Feel Safe in your Home?: Yes Lack of Transportation: No Lack of Food: Never True Current Housing: I Have Housing Concerned About Future Housing: No Difficulty Paying Gas/Electric Bills: No Difficulty Paying for Meds: No Currently Unemployed: No Education: High School Diploma/GED Difficulty w/ Childcare or Family Care: No Living arrangements: alone Occupation/Education: retired Gender identity (if verbalized by the patient): Female Spiritual care concerns: No Meds Home Medications and Allergies Home Medications Medication Instructions Recorded Confirmed Type losartan 50 mg tablet 50 mg PO DAILY #90 tabs 09/27/22 05/29/23 Rx esomeprazole magnesium 40 mg 40 mg PO DAILY #90 caps 10/11/22 05/29/23 Rx capsule,delayed release simvastatin 20 mg tablet 20 mg PO DAILY #90 tabs 12/30/22 05/29/23 Rx Allergies Allergy/AdvReac Type Severity Reaction Status Date / Time amoxicillin Allergy Mild Rash Verified 05/29/23 09:26 Penicillins Allergy Unknown AMOXICILLIN Verified 05/29/23 09:26 Vital Signs Vital Signs - 24 hr 05/29/23 09:45 05/29/23 13:26 05/29/23 13:43 Temperature 98.2 F 97.9 F Pulse Rate 93 95 91 Respiratory Rate 18 16 24 H Blood Pressure 129/82 142/74 H 94/62 L Pulse Oximetry 96 98 98 Oxygen Delivery Room Air 05/29/23 13:47 05/29/23 14:01 Temperature 97.9 F Pulse Rate 92 89 Respiratory Rate 24 H 26 H Blood Pressure 152/76 H 155/73 H Pulse Oximetry 97 94 Oxygen Delivery Exam Narrative: Pain with motion. Wiggles toes. Eyes: General: appearance normal, both eyes and all related structures Neck: Neck: supple Resp: Effort & Inspection: normal respiratory effort Cardio: Rate: regular rate Rhythm: regular rhythm H&P: Results Labs Labs: Short CBC 05/29/23 Range/Units 13:37 WBC 12.3 H (4.5-10.0) K/mm3 Hgb 13.2 (12.0-15.0) g/dL Hct 40.4 (37.0-47.0) % Plt Count 273 (150-375) k/mm3 Assessment and Plan Assessment and plan (1) Fracture of femoral neck, right: Code(s): S72.001A - Fracture of unspecified part of neck of right femur, initial encounter for closed fracture Status: Acute Assessment and Plan: Discussed at length. Plan on pinning. Unlikely to nee Bipolar. Discussed risks, benefits, limitations, and alternative in detail. [facility] H&P [facility] H&P
--- NOTE | 2023-05-29 15:03 | WPDHPUPDATE1 ---
History and Physical Update Update Date/Time: 05/29/23 15:03 History and Physical has been reviewed, including an updated exam of the patient. There are NO changes in the patient's condition. Risks, benefits, and alternatives have been discussed and questions answered. Patient agrees to proceed with procedure.
[2023-05-29] MEDS: ceFAZolin 2 GM/D5W 50 ML 2 GM/50 ML BAG IVPB (15:08)
[2023-05-29] MEDS: TRANEXAMIC ACID 1,000MG/ISO100 1,000 MG/100 ML BAG 200 MG IVPB (15:25)
--- NOTE | 2023-05-29 16:08 | W.PM.PROC2 ---
Procedure Note - Detailed Date of Procedure 05/29/23 Pre-op Diagnosis RIGHT FEMORAL Neck Fracture Post-op Diagnosis Same Procedure Performed Open Reduction, Internal Fixation with pins Right hip Surgeon Maury Harper MD Credit Rating Checker Jerry Anesthesia General Indications Hip Fracture Description of Procedure Patient brought to operating room 8. A general anesthetic was administered. She was sterilely prepped and draped in the usual manner. On the fracture table. The longitudinal incision made over the hip. Dissection carried down gently to the lateral cortex. Three screws were placed for will head to above 1 below. This gave good fixation and alignment of the fracture. The screws used were 80, 85 and 90. Wounds irrigated hemostasis obtained. And then closed with 1. Vicryl 2-0 Vicryl and zeny. Sterile dressing was applied. Patient tolerated procedure well. Implants 7.3mm Synthesis Screws Estimated Blood Loss 100 Drains No Packing No Pathology None sent Complications No immediate complications Condition Stable Disposition PACU [facility] Billing Surgery - Charge Forward: Surgery Billing ([id number] Hip Pinning)
[2023-05-29 16:23] LABS: Alanine Aminotransferase 13 U/L (6-35); Albumin Level 4.1 g/dL (3.5-5.1); Alkaline Phosphatase 56 U/L (38-126); Anion Gap 6 mmol/L (4-12); Aspartate Amino Transferase 24 U/L (14-36); Bilirubin,Total 0.8 mg/dL (0.2-1.3); Blood Urea Nitrogen 12 mg/dL (7-17); Calcium 8.9 mg/dL (8.4-10.2); Carbon Dioxide 23 mmol/L (22-30); Chloride 101 mmol/L (98-107); Estimated CRCL calculation 53 ml/min; Estimated Glomerular Filt Rate > 60; Glucose 100 mg/dL (65-110); Potassium 4.1 mmol/L (3.4-5.0); Sodium 130 mmol/L (137-145)
[2023-05-29] MEDS: fentaNYL CITRATE INJ (*CRX) 100 MCG/2 ML VIAL 25 MCG IV PUSH ×4 (16:53→17:48)
[2023-05-29] MEDS: SODIUM CHLORIDE 0.9% IV 1,000 ML 125 ML IV CONT (18:42)
[2023-05-29] MEDS: ACETAMINOPHEN 500 MG TABLET PO (20:51)
[2023-05-29] MEDS: RIVAROXABAN 10 MG TABLET PO (20:52)
[2023-05-29] MEDS: FAMOTIDINE 20 MG TABLET PO (20:52)
[2023-05-29] MEDS: ceFAZolin 1 GM/NS 50 ML 1 GM/50 ML BAG IVPB (20:53)
--- NOTE | 2023-05-29 21:12 | PM.IMCN ---
Assessment and Plan Assessment and plan (1) Closed fracture of proximal end of right femur: Qualifiers: Encounter type: initial encounter Qualified Code(s): S72.001A - Fracture of unspecified part of neck of right femur, initial encounter for closed fracture Code(s): S72.001A - Fracture of unspecified part of neck of right femur, initial encounter for closed fracture Status: Acute (2) Fall: Qualifiers: Encounter type: initial encounter Qualified Code(s): W19.XXXA - Unspecified fall, initial encounter Code(s): W19.XXXA - Unspecified fall, initial encounter Status: Acute (3) HTN (hypertension): Code(s): I10 - Essential (primary) hypertension Status: Inactive Plan Luna Iyer is a 87 year old female with a past medical history GERD, essential hypertension, degenerative joint disease who presents to [place] [facility] after ground level fall 2 days prior. It tripped and fell hit her head without loss of consciousness and since then has not been able to put weight on her right leg. Head CT on admission demonstrated a normal aging brain, chest x-ray unremarkable, hip and pelvis x-ray demonstrating nondisplaced subcapital fracture of the proximal right femur. Subsequently she was taken for open reduction internal fixation with pins of the right hip by Dr. Harper. Seen postop, the patient has no complaints. Denies any complain or chest pain or shortness of breath. Continue pain control, DVT prophylaxis with Xarelto, wound care, therapy, disposition orthopedic surgery. At bedside evaluation asked nurse to wean the patient down and from 2-1 L she is still saturating 96% on room air. Advised to continue to wean O2 as tolerated with a goal O2 saturation greater than 92%. Mild leukocytosis. She has no symptomatology to indicate she as infection. Trend white count and check procalcitonin. FEN: Normal saline. GI prophylaxis: Protonix DVT prophylaxis: Xarelto Lines: Peripheral IV, Avila Code Status: Full code Dispo: Stable. HPI Date of Consult Consult date: 05/29/23 Requesting Physician: Maury Harper MD Primary Care Provider: Delilah Pearl MD Consult Narrative Reason for consult: Medical management Narrative: Luna Iyer is a 87 year old female with a past medical history GERD, essential hypertension, degenerative joint disease who presents to [place] [facility] after ground level fall 2 days prior. It tripped and fell hit her head without loss of consciousness and since then has not been able to put weight on her right leg. Head CT on admission demonstrated a normal aging brain, chest x-ray unremarkable, hip and pelvis x-ray demonstrating nondisplaced subcapital fracture of the proximal right femur. Subsequently she was taken for open reduction internal fixation with pins of the right hip by Dr. Harper. Seen postop, the patient has no complaints. Denies any complain or chest pain or shortness of breath. 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
[2023-05-30] VITALS (9 sets, daily range): BP systolic 114–121; BP diastolic 50–93; PULSE 72–89; RESP 16–20; TEMP 36.2–36.7; O2SAT 91–96
[2023-05-30] MEDS: ceFAZolin 1 GM/NS 50 ML 1 GM/50 ML BAG IVPB ×2 (05:50→15:46)
[2023-05-30 06:18] LABS: Basophils Percent Auto 0.3 % (0.2-1.2); Hematocrit 34.5 % (37.0-47.0); Hemoglobin 11.2 g/dL (12.0-15.0); Immature Granulocyte Absolute 0.04 K/mm3 (0.00-0.031); Immature Granulocyte Percent A 0.5 % (0-0.5); Lymphocytes Absolute Auto 0.65 K/mm3 (0.9-3.2); Lymphocytes Percent Auto 8.9 % (18.3-44.2); Mean Corpuscular HGB Conc 32.5 g/dl (32-36); Mean Corpuscular Hemoglobin 31.6 pg (26-34); Mean Corpuscular Volume 97.5 fl (80-100); Mean Platelet Volume 9.6 fl (7.4-10.4); Monocytes Absolute Auto 0.6 K/mm3 (0.1-0.6); Monocytes Percent Auto 7.9 % (2.6-8.5); Neutrophils Percent Auto 82.4 % (45.5-73.1); Platelet Count Result 222 k/mm3 (150-375); Red Blood Count 3.54 M/mm3 (4.2-5.4); Red Cell Distribution Width 12.9 % (11.5-14.5); White Blood Count 7.3 K/mm3 (4.5-10.0)
[2023-05-30] MEDS: IBUPROFEN IV 800 MG/200 ML 800 MG/200 ML BAG 400 MG IVPB (06:28)
[2023-05-30 06:31] LABS: Anion Gap 6 mmol/L (4-12); Blood Urea Nitrogen 13 mg/dL (7-17); Carbon Dioxide 20 mmol/L (22-30); Chloride 103 mmol/L (98-107); Estimated CRCL calculation 62 ml/min; Estimated Glomerular Filt Rate > 60; Glucose 137 mg/dL (65-110); Potassium 4.1 mmol/L (3.4-5.0); Sodium 129 mmol/L (137-145)
[2023-05-30] MEDS: HYDROcodone/acetaminophen (*CRX) 7.5-325 MG TABLET 1 TAB PO (06:31)
--- NOTE | 2023-05-30 06:58 | PM.PNORT ---
Progress Note: A&P Assessment and Plan (1) Closed fracture of proximal end of right femur: Qualifiers: Encounter type: initial encounter Qualified Code(s): S72.001A - Fracture of unspecified part of neck of right femur, initial encounter for closed fracture Code(s): S72.001A - Fracture of unspecified part of neck of right femur, initial encounter for closed fracture Status: Acute Assessment and Plan: Patient underwent open reduction internal fixation right hip with a pinning. She is doing okay this morning having some issues with pain. We will mobilize her today discussed. (2) Hip pain, right: Code(s): M25.551 - Pain in right hip Status: Acute Subjective Subjective Date/Time Seen: 05/30/23 06:58 Post Op day: 1 Principal diagnosis: Right femoral neck fracture status post pinning Review of Systems Review of Systems: All systems reviewed & are unremarkable except as noted in HPI and below (Subjective) Exam Narrative: Patient can wiggle her toes. She has pain with any manipulation of her hip. Objective Data Vital Signs Vital Signs: Vital Signs - 24 hr 05/29/23 09:45 05/29/23 13:26 05/29/23 13:43 Temperature 98.2 F 97.9 F Pulse Rate 93 95 91 Respiratory Rate 18 16 24 H Blood Pressure 129/82 142/74 H 94/62 L Pulse Oximetry 96 98 98 Oxygen Delivery Room Air Oxygen Flow Rate 05/29/23 13:47 05/29/23 14:01 05/29/23 14:59 Temperature 97.9 F 99.3 F Pulse Rate 92 89 92 Respiratory Rate 24 H 26 H 16 Blood Pressure 152/76 H 155/73 H 152/55 H Pulse Oximetry 97 94 95 Oxygen Delivery Room Air Oxygen Flow Rate 05/29/23 16:20 05/29/23 16:35 05/29/23 16:50 Temperature 97.3 F L Pulse Rate 97 94 92 Respiratory Rate 14 13 12 Blood Pressure 151/72 H 153/68 H 146/77 H Pulse Oximetry 100 100 97 Oxygen Delivery Simple Face Mask Simple Face Mask Room Air Oxygen Flow Rate 8 8 05/29/23 17:00 05/29/23 17:15 05/29/23 17:30 Temperature Pulse Rate 93 92 91 Respiratory Rate 12 14 12 Blood Pressure 147/72 H 153/69 H 141/66 H Pulse Oximetry 97 97 97 Oxygen Delivery Nasal Cannula Nasal Cannula Nasal Cannula Oxygen Flow Rate 2 2 2 05/29/23 17:45 05/29/23 18:28 05/29/23 18:43 Temperature 97.8 F 97.9 F Pulse Rate 94 92 94 Respiratory Rate 17 22 H 22 H Blood Pressure 157/79 H 128/58 L 134/67 Pulse Oximetry 97 96 96 Oxygen Delivery Nasal Cannula Oxygen Flow Rate 2 05/29/23 19:17 05/29/23 20:29 05/29/23 23:07 Temperature 97.8 F 97.9 F 97.7 F Pulse Rate 95 92 96 Respiratory Rate 22 H 20 17 Blood Pressure 136/67 119/69 126/61 Pulse Oximetry 97 97 96 Oxygen Delivery Oxygen Flow Rate 05/29/23 20:00 05/29/23 20:30 05/30/23 03:22 Temperature 97.1 F L Pulse Rate 89 Respiratory Rate 17 Blood Pressure 114/93 H Pulse Oximetry 97 96 95 Oxygen Delivery Nasal Cannula Nasal Cannula Oxygen Flow Rate 2 1 05/30/23 03:31 05/30/23 04:00 05/30/23 04:04 Temperature Pulse Rate Respiratory Rate Blood Pressure Pulse Oximetry 95 91 95 Oxygen Delivery Room Air Room Air Nasal Cannula Oxygen Flow Rate 1 Intake/Output Intake/Output: Intake & Output 05/27/23 05/28/23 05/29/23 05/30/23 23:59 23:59 23:59 23:59 Intake Total 400 1000 Output Total 160 Balance 240 1000 Meds/Results Medications: Active Medications Generic Name Dose Route Start Last Admin Trade Name Freq PRN Reason Stop Dose Admin Acetaminophen 500 mg 05/29/23 17:57 05/29/23 20:51 Acetaminophen 500 Mg Tablet PO 500 mg Q6H PRN Administration Pain Rated 1-3 Hydrocodone Bitart/Acetaminophen 1 tab 05/29/23 17:57 Hydrocodone/Acetaminophen (*Crx) 5-325 Mg Tablet PO Q4H PRN Pain Rated 4-6 Hydrocodone Bitart/Acetaminophen 1 tab 05/29/23 17:57 05/30/23 06:31 Hydrocodone/Acetaminophen (*Crx) 7.5-325 Mg Tablet PO 1 tab Q4H PRN Administration Pain Rated 7-10 Celecoxib 200 mg 05/30/23 08
[2023-05-30] MEDS: HYDROmorphone HCL INJ (*CRX) 1 MG/ML SYR IV PUSH (07:19)
[2023-05-30 07:23] LABS: Procalcitonin 0.1 ng/mL
--- NOTE | 2023-05-30 08:59 | WPDANESPN ---
Anes - Prog Note Post-Op Date/Time: 05/30/23 08:59 Cardiovascular status: normal Respiratory status: normal Airway patency: baseline Mental status: baseline Post-Op hydration status: normal Vital Signs: Last Vital Signs Temp 36.2 C L 05/30/23 03:22 Pulse 89 05/30/23 03:22 Resp 17 05/30/23 03:22 BP 114/93 H 05/30/23 03:22 Pulse Ox 95 05/30/23 04:04 O2 Del Method Nasal Cannula 05/30/23 04:04 O2 Flow Rate 1 05/30/23 04:04 Pain Score (VAS): 04/15 I/O: Intake & Output 05/29/23 05/30/23 05/30/23 23:59 07:59 15:59 Intake Total 250 1000 Output Total 160 Balance 90 1000 Laboratory Tests 05/30/23 05:52 05/30/23 05:52 05/29/23 05/29/23 05/30/23 13:37 13:38 05:52 WBC 12.3 H 7.3 RBC 4.19 L 3.54 L Hgb 13.2 11.2 L Hct 40.4 34.5 L MCV 96.4 97.5 MCH 31.5 31.6 MCHC 32.7 32.5 RDW 13.2 12.9 Plt Count 273 222 MPV 9.5 9.6 Immature Gran % (Auto) 0.6 H 0.5 Neut % (Auto) 74.5 H 82.4 H Lymph % (Auto) 10.7 L 8.9 L Gilliam % (Auto) 10.7 H 7.9 Eos % (Auto) 2.4 0.0 Baso % (Auto) 1.1 0.3 Lymph # (Auto) 1.32 0.65 L Gilliam # (Auto) 1.3 H 0.6 Eos # (Auto) 0.3 0.0 Baso # (Auto) 0.1 0.0 Abs Immat Gran (auto) 0.07 H 0.04 H Absolute Neuts (auto) 9.1 H 6.0 Absolute Nucleated RBC 0.000 0.000 Nucleated RBC % 0.0 0.0 PT 14.0 INR 1.0 APTT 31.0 Sodium 130 L 129 L Potassium 4.1 4.1 Chloride 101 103 Carbon Dioxide 23 20 L Anion Gap 6 6 BUN 12 13 Creatinine 0.60 L 0.50 L Estim Creat Clear Calc 53 62 Estimated GFR > 60 > 60 Glucose 100 137 H Calcium 8.9 8.0 L Total Bilirubin 0.8 AST 24 ALT 13 Alkaline Phosphatase 56 Total Protein 8.0 Albumin 4.1 Procalcitonin 0.1 Blood Type O Positive Antibody Screen Negative Post-procedural complaints: none Patient Feedback: Patient satisfied with anesthetic care.
[2023-05-30] MEDS: CELECOXIB 200 MG CAPSULE PO (09:14)
[2023-05-30] MEDS: FAMOTIDINE 20 MG TABLET PO ×2 (09:14→20:36)
[2023-05-30] MEDS: polyethylene glycoL 3350 17 GM POWD.PACK PO (09:14)
[2023-05-30] MEDS: SENNA/DOCUSATE SODIUM TABLET 2 TAB PO ×2 (09:14→17:39)
[2023-05-30] MEDS: LOSARTAN POTASSIUM 50 MG TABLET PO (09:14)
[2023-05-30] MEDS: SIMVASTATIN 20 MG TABLET PO (09:14)
[2023-05-30] MEDS: PANTOPRAZOLE 40 MG TABLET PO (09:15)
[2023-05-30] MEDS: ONDANSETRON INJ 4 MG/2 ML VIAL IV PUSH ×2 (09:18→14:51)
--- NOTE | 2023-05-30 10:10 | PM.IMPN ---
Progress Note: A&P Assessment and Plan (1) Closed fracture of proximal end of right femur: Qualifiers: Encounter type: initial encounter Qualified Code(s): S72.001A - Fracture of unspecified part of neck of right femur, initial encounter for closed fracture Code(s): S72.001A - Fracture of unspecified part of neck of right femur, initial encounter for closed fracture Status: Acute (2) Fall: Qualifiers: Encounter type: initial encounter Qualified Code(s): W19.XXXA - Unspecified fall, initial encounter Code(s): W19.XXXA - Unspecified fall, initial encounter Status: Acute (3) HTN (hypertension): Code(s): I10 - Essential (primary) hypertension Status: Inactive Plan Luna Iyer is a 87 year old female with a past medical history GERD, essential hypertension, degenerative joint disease who presents to [place] [facility] after ground level fall 2 days prior. It tripped and fell hit her head without loss of consciousness and since then has not been able to put weight on her right leg. Head CT on admission demonstrated a normal aging brain, chest x-ray unremarkable, hip and pelvis x-ray demonstrating nondisplaced subcapital fracture of the proximal right femur. Subsequently she was taken for open reduction internal fixation with pins of the right hip by Dr. Harper. Seen postop, the patient has no complaints. Denies any complain or chest pain or shortness of breath. right hip fracture Patient underwent open reduction internal fixation right hip with a pinning, no surgical complication during the procedure patient is afebrile, blood pressure stable, Patient feels pain is tolerable optimize pain management DVT prophylaxis with Xarelto per Orthopedic recommendation, continue wound care, therapy, disposition orthopedic surgery. Hypoxemia At bedside evaluation asked nurse to wean the patient down and from 2-1 L she is still saturating 96% on room air. Advised to continue to wean O2 as tolerated with a goal O2 saturation greater than 92%. Mild leukocytosis. no sign infection Trend white count and check procalcitonin. received cefazolin IV for prophylaxis of infection and continue cefazolin today per orthopedic surgeon FEN: Normal saline. GI prophylaxis: Protonix DVT prophylaxis: Xarelto Lines: Peripheral IV, Avila Code Status: Full code Dispo: Stable. Subjective Date/time seen: 05/30/23 10:10 Interval history: Patient underwent open reduction internal fixation right hip with a pinning, patient walked few steps this morning, walking is restricted because of severe pain. Patient denies abdomen pain, but the patient feels nauseous after receiving pain medication. Patient denies diarrhea, patient passed gas. Patient denies headache, focal weakness. Patient is afebrile, blood pressure stable, no O2 desaturation. Patient feels pain is tolerable Exam Narrative: GENERAL: Pleasant, in no acute distress. Well-nourished. - EYES: EOMI. Anicteric. - HENT: Moist mucous membranes. - LUNGS: Clear to auscultation bilaterally, no wheezing, rhonchi, or rales. - CARDIOVASCULAR: Regular rate and rhythm. No murmur. No JVD. - ABDOMEN: Soft, non-tender and non-distended. No palpable masses. - EXTREMITIES: No edema. Peripheral pulses 2+. Non-tender. restriction of movement of right hip because of pain, surgical wound is dry and clean - NEUROLOGIC: No focal neurological deficits. CN II-XII grossly intact. - PSYCHIATRIC: Awake, Alert and oriented x 3. Appropriate mood and affect. - SKIN: No rashes or lesions. Warm. - LYMPH: No cervical lymphadenopathy. Objective Data Vital Signs Vital Signs: Vital Signs - 24 hr 05/29/23 13:26 05/29/23 13:43 05/29/23 13:47 Temperature 97.9 F 97.9 F Pulse Rate 95 91 92 Respiratory Rate 16 24 H 24 H Blood Pressure 142/74 H 94/62 L 152/76 H Pulse Oximetry 98 98 97 Oxygen Delivery Oxygen Flow Rate 05/29/23 14:01 05/29/23
[2023-05-30] MEDS: RIVAROXABAN 10 MG TABLET PO (17:39)
[2023-05-30] MEDS: ACETAMINOPHEN 500 MG TABLET PO (20:45)
[2023-05-31 00:40] VITALS: BP 122/56; PULSE 84; RESP 16; TEMP 36.6; O2SAT 95
[2023-05-31] MEDS: HYDROcodone/acetaminophen (*CRX) 5-325 MG TABLET 1 TAB PO (03:11)
[2023-05-31 06:44] VITALS: BP 148/63; PULSE 80; RESP 16; TEMP 36.4; O2SAT 95
[2023-05-31 08:25] LABS: Hematocrit 37.6 % (37.0-47.0); Hemoglobin 12.1 g/dL (12.0-15.0); Mean Corpuscular HGB Conc 32.2 g/dl (32-36); Mean Corpuscular Hemoglobin 32.4 pg (26-34); Mean Corpuscular Volume 100.5 fl (80-100); Mean Platelet Volume 9.3 fl (7.4-10.4); Platelet Count Result 262 k/mm3 (150-375); Red Blood Count 3.74 M/mm3 (4.2-5.4); Red Cell Distribution Width 13.2 % (11.5-14.5); White Blood Count 9.6 K/mm3 (4.5-10.0)
[2023-05-31 08:39] LABS: Anion Gap 4 mmol/L (4-12); Blood Urea Nitrogen 15 mg/dL (7-17); Calcium 8.4 mg/dL (8.4-10.2); Carbon Dioxide 24 mmol/L (22-30); Chloride 102 mmol/L (98-107); Estimated CRCL calculation 53 ml/min; Estimated Glomerular Filt Rate > 60; Glucose 98 mg/dL (65-110); Potassium 4.1 mmol/L (3.4-5.0); Sodium 130 mmol/L (137-145)
[2023-05-31] MEDS: polyethylene glycoL 3350 17 GM POWD.PACK PO (09:46)
[2023-05-31] MEDS: FAMOTIDINE 20 MG TABLET PO ×2 (09:46→21:11)
[2023-05-31] MEDS: LOSARTAN POTASSIUM 50 MG TABLET PO (09:46)
[2023-05-31] MEDS: PANTOPRAZOLE 40 MG TABLET PO (09:46)
[2023-05-31] MEDS: SENNA/DOCUSATE SODIUM TABLET 2 TAB PO ×2 (09:46→16:36)
[2023-05-31] MEDS: SIMVASTATIN 20 MG TABLET PO (09:46)
[2023-05-31] MEDS: CELECOXIB 200 MG CAPSULE PO (09:46)
[2023-05-31 13:45] VITALS: BP 167/67; PULSE 81; RESP 18; TEMP 36.3; O2SAT 95
--- NOTE | 2023-05-31 15:52 | P.PNIM_ITS ---
Progress Note: A&P Assessment and Plan (1) Closed fracture of proximal end of right femur: Qualifiers: Encounter type: initial encounter Qualified Code(s): S72.001A - Fracture of unspecified part of neck of right femur, initial encounter for closed fracture Code(s): S72.001A - Fracture of unspecified part of neck of right femur, initial encounter for closed fracture Status: Acute (2) Fall: Qualifiers: Encounter type: initial encounter Qualified Code(s): W19.XXXA - Unspecified fall, initial encounter Code(s): W19.XXXA - Unspecified fall, initial encounter Status: Acute (3) HTN (hypertension): Code(s): I10 - Essential (primary) hypertension Status: Inactive Plan * Patient underwent open reduction internal fixation right hip with a pinning, no surgical complication during the procedure * patient is afebrile, blood pressure stable * pain management * DVT prophylaxis with Xarelto per Orthopedic recommendation * continue wound care, therapy, disposition orthopedic surgery. * on room air * WBC 9.6 * procalcitonin 0.1 FEN: Normal saline. GI prophylaxis: Protonix DVT prophylaxis: Xarelto Lines: Peripheral IV, Avila Code Status: Full code Dispo: Stable. Subjective Date/time seen: 05/31/23 15:52 Interval history: Patient is afebrile, blood pressure stable, no O2 desaturation. Ortho following, awaiting placement to [facility] per CC. Patient has remained stable and will be medically able to d/c when able. Review of Systems Review of Systems: All systems reviewed & are unremarkable except as noted in HPI and below (Subjective) Exam Narrative: GENERAL: Pleasant, in no acute distress. Well-nourished. - EYES: EOMI. PERRLA - HENT: Moist mucous membranes. - LUNGS: Lungs clear to auscultation - CARDIOVASCULAR: RRR. No murmur. No JVD . - ABDOMEN: Soft, non-tender and non-dist ended. No palpable masses. - EXTREMITIES: No edema. Peripheral puls es 2+. Non-tender. Dressing intact, clean and dry - NEUROLOGIC: No focal neurological defi cits. CN II-XII grossly intact. - PSYCHIATRIC: Alert and oriented x3. Ap propriate mood and affect. - SKIN: No rashes or lesions. Warm. - LYMPH: No cervical lymphadenopathy. Objective Data Vital Signs Vital Signs: Vital Signs - 24 hr 05/30/23 19:42 05/31/23 00:40 05/31/23 06:44 Temperature 97.6 F 97.8 F 97.6 F Pulse Rate 73 84 80 Respiratory Rate 16 16 16 Blood Pressure 121/54 L 122/56 L 148/63 H Pulse Oximetry 95 95 95 Oxygen Delivery 05/31/23 13:45 05/31/23 08:00 Temperature 97.4 F L Pulse Rate 81 Respiratory Rate 18 Blood Pressure 167/67 H Pulse Oximetry 95 Oxygen Delivery Room Air Intake/Output Intake/Output: Intake & Output 05/28/23 05/29/23 05/30/23 05/31/23 23:59 23:59 23:59 23:59 Intake Total 400 4980 969
--- NOTE | 2023-05-31 15:52 | PM.IMPN ---
Progress Note: A&P Assessment and Plan (1) Closed fracture of proximal end of right femur: Qualifiers: Encounter type: initial encounter Qualified Code(s): S72.001A - Fracture of unspecified part of neck of right femur, initial encounter for closed fracture Code(s): S72.001A - Fracture of unspecified part of neck of right femur, initial encounter for closed fracture Status: Acute (2) Fall: Qualifiers: Encounter type: initial encounter Qualified Code(s): W19.XXXA - Unspecified fall, initial encounter Code(s): W19.XXXA - Unspecified fall, initial encounter Status: Acute (3) HTN (hypertension): Code(s): I10 - Essential (primary) hypertension Status: Inactive Plan Patient underwent open reduction internal fixation right hip with a pinning, no surgical complication during the procedure patient is afebrile, blood pressure stable pain management DVT prophylaxis with Xarelto per Orthopedic recommendation continue wound care, therapy, disposition orthopedic surgery. on room air WBC 9.6 procalcitonin 0.1 FEN: Normal saline. GI prophylaxis: Protonix DVT prophylaxis: Xarelto Lines: Peripheral IV, Avila Code Status: Full code Dispo: Stable. Subjective Date/time seen: 05/31/23 15:52 Interval history: Patient is afebrile, blood pressure stable, no O2 desaturation. Ortho following, awaiting placement to [facility] per CC. Patient has remained stable and will be medically able to d/c when able. Review of Systems Review of Systems: All systems reviewed & are unremarkable except as noted in HPI and below (Subjective) Exam Narrative: GENERAL: Pleasant, in no acute distress. Well-nourished. - EYES: EOMI. PERRLA - HENT: Moist mucous membranes. - LUNGS: Lungs clear to auscultation - CARDIOVASCULAR: RRR. No murmur. No JVD. - ABDOMEN: Soft, non-tender and non-distended. No palpable masses. - EXTREMITIES: No edema. Peripheral pulses 2+. Non-tender. Dressing intact, clean and dry - NEUROLOGIC: No focal neurological deficits. CN II-XII grossly intact. - PSYCHIATRIC: Alert and oriented x3. Appropriate mood and affect. - SKIN: No rashes or lesions. Warm. - LYMPH: No cervical lymphadenopathy. Objective Data Vital Signs Vital Signs: Vital Signs - 24 hr 05/30/23 19:42 05/31/23 00:40 05/31/23 06:44 Temperature 97.6 F 97.8 F 97.6 F Pulse Rate 73 84 80 Respiratory Rate 16 16 16 Blood Pressure 121/54 L 122/56 L 148/63 H Pulse Oximetry 95 95 95 Oxygen Delivery 05/31/23 13:45 05/31/23 08:00 Temperature 97.4 F L Pulse Rate 81 Respiratory Rate 18 Blood Pressure 167/67 H Pulse Oximetry 95 Oxygen Delivery Room Air Intake/Output Intake/Output: Intake & Output 05/28/23 05/29/23 05/30/23 05/31/23 23:59 23:59 23:59 23:59 Intake Total 400 2388 960 Output Total 160 350 750 Balance 240 2038 210 Meds/Results Medications: Active Medications Generic Name Dose Route Start Last Admin Trade Name Freq PRN Reason Stop Dose Admin Acetaminophen 500 mg 05/29/23 17:57 05/30/23 20:45 Acetaminophen 500 Mg Tablet PO 500 mg Q6H PRN Administration Pain Rated 1-3 Hydrocodone Bitart/Acetaminophen 1 tab 05/29/23 17:57 05/31/23 03:11 Hydrocodone/Acetaminophen (*Crx) 5-325 Mg Tablet PO 1 tab Q4H PRN Administration Pain Rated 4-6 Hydrocodone Bitart/Acetaminophen 1 tab 05/29/23 17:57 05/30/23 06:31 Hydrocodone/Acetaminophen (*Crx) 7.5-325 Mg Tablet PO 1 tab Q4H PRN Administration Pain Rated 7-10 Celecoxib 200 mg 05/30/23 08:00 05/31/23 09:46 Celecoxib 200 Mg Capsule PO 200 mg DAILY@0800 ALLISON Administration Famotidine 20 mg 05/29/23 21:00 05/31/23 09:46 Famotidine 20 Mg Tablet PO 20 mg Q12HR ALLISON Administration Hydromorphone HCl 1 mg 05/29/23 17:57 05/30/23 07:19 Hydromorphone Hcl Inj (*Crx) 1 Mg/Ml Syr IV PUSH 1 mg Q2H PRN Administration Breakthrough Pain
[2023-05-31] MEDS: methocarbamoL 500 MG TABLET PO (16:36)
[2023-05-31] MEDS: RIVAROXABAN 10 MG TABLET PO (16:36)
[2023-05-31 22:05] VITALS: BP 152/77; PULSE 84; RESP 20; TEMP 36.6; O2SAT 96
[2023-06-01] MEDS: HYDROcodone/acetaminophen (*CRX) 5-325 MG TABLET 1 TAB PO (02:41)
[2023-06-01 06:00] VITALS: BP 135/63; PULSE 86; RESP 20; TEMP 36.9; O2SAT 95
--- NOTE | 2023-06-01 06:44 | PM.PNORT ---
Progress Note: A&P Assessment and Plan (1) Closed fracture of proximal end of right femur: Qualifiers: Encounter type: initial encounter Qualified Code(s): S72.001A - Fracture of unspecified part of neck of right femur, initial encounter for closed fracture Code(s): S72.001A - Fracture of unspecified part of neck of right femur, initial encounter for closed fracture Status: Acute Assessment and Plan: Femoral Neck Fracture RIGHT. Awaiting placement. Subjective Subjective Date/Time Seen: 06/01/23 06:44 Post Op day: 3 Principal diagnosis: Right Femoral Neck FX Interval history: Slow progress in therapy. Pain issues. Awaiting placement. Review of Systems Review of Systems: All systems reviewed & are unremarkable except as noted in HPI and below (Subjective) Exam Narrative: Wiggles toes. Pain with motion. Resp: Effort & Inspection: normal respiratory effort Cardio: Rate: regular rate Rhythm: regular rhythm Objective Data Vital Signs Vital Signs: Vital Signs - 24 hr 05/31/23 13:45 05/31/23 08:00 05/31/23 22:05 Temperature 97.4 F L 97.9 F Pulse Rate 81 84 Respiratory Rate 18 20 Blood Pressure 167/67 H 152/77 H Pulse Oximetry 95 96 Oxygen Delivery Room Air 06/01/23 06:00 Temperature 98.4 F Pulse Rate 86 Respiratory Rate 20 Blood Pressure 135/63 Pulse Oximetry 95 Oxygen Delivery Intake/Output Intake/Output: Intake & Output 05/29/23 05/30/23 05/31/23 06/01/23 23:59 23:59 23:59 23:59 Intake Total 400 2388 1440 150 Output Total 804 365 9737 1100 Balance 240 5225 -546 -981 Meds/Results Medications: Active Medications Generic Name Dose Route Start Last Admin Trade Name Freq PRN Reason Stop Dose Admin Acetaminophen 500 mg 05/29/23 17:57 05/30/23 20:45 Acetaminophen 500 Mg Tablet PO 500 mg Q6H PRN Administration Pain Rated 1-3 Hydrocodone Bitart/Acetaminophen 1 tab 05/29/23 17:57 06/01/23 02:41 Hydrocodone/Acetaminophen (*Crx) 5-325 Mg Tablet PO 1 tab Q4H PRN Administration Pain Rated 4-6 Hydrocodone Bitart/Acetaminophen 1 tab 05/29/23 17:57 05/30/23 06:31 Hydrocodone/Acetaminophen (*Crx) 7.5-325 Mg Tablet PO 1 tab Q4H PRN Administration Pain Rated 7-10 Celecoxib 200 mg 05/30/23 08:00 05/31/23 09:46 Celecoxib 200 Mg Capsule PO 200 mg DAILY@0800 ALLISON Administration Famotidine 20 mg 05/29/23 21:00 05/31/23 21:11 Famotidine 20 Mg Tablet PO 20 mg Q12HR ALLISON Administration Hydromorphone HCl 1 mg 05/29/23 17:57 05/30/23 07:19 Hydromorphone Hcl Inj (*Crx) 1 Mg/Ml Syr IV PUSH 1 mg Q2H PRN Administration Breakthrough Pain Rated 7-10 or NPO Hydromorphone HCl 0.5 mg 05/29/23 17:57 Hydromorphone Hcl Inj (*Crx) 1 Mg/Ml Syr IV PUSH Q2H PRN Breakthrough Pain Rated 4-6 or NPO Ibuprofen 800 mg in 200 mls @ 400 mls/hr 05/29/23 17:57 05/30/23 06:28 Caldolor 800 Mg/200 Ml IVPB 400 mls/hr Q6H PRN Administration Breakthrough Pain Rated 1-3 or NPO Losartan Potassium 50 mg 05/30/23 09:00 05/31/23 09:46 Losartan Potassium 50 Mg Tablet PO 50 mg DAILY ALLISON Administration Magnesium Citrate 150 ml 05/31/23 16:12 Magnesium Citrate 300 Ml Btl PO ONCE PRN Constipation Naloxone HCl 0.1 mg 05/29/23 17:57 Naloxone Hcl 0.4 Mg/Ml Vial IV PUSH Q2M PRN Opiate Reversal Ondansetron HCl 4 mg 05/29/23 17:57 05/30/23 14:51 Ondansetron Inj 4 Mg/2 Ml Vial IV PUSH 4 mg Q4H PRN Administration Nausea And Vomiting Pantoprazole Sodium 40 mg 05/30/23 09:00 05/31/23 09:46 Pantoprazole 40 Mg Tablet PO 40 mg DAILY ALLISON Administration Polyethylene Glycol 17 gm 05/30/23 09:00 05/31/23 09:46 Polyethylene Glycol 3350 17 Gm Powd.Pack PO 17 gm QAM ALLISON Administration Rivaroxaban 10 mg 05/29/23 22:00 05/31/23 16:36 Rivaroxaban 10 Mg Tablet PO 10 mg DAILY@17 ALLISON Administration Senna/Docus
[2023-06-01] MEDS: CELECOXIB 200 MG CAPSULE PO (09:34)
[2023-06-01] MEDS: LOSARTAN POTASSIUM 50 MG TABLET PO (09:34)
[2023-06-01] MEDS: SIMVASTATIN 20 MG TABLET PO (09:34)
[2023-06-01] MEDS: FAMOTIDINE 20 MG TABLET PO (09:34)
[2023-06-01] MEDS: SENNA/DOCUSATE SODIUM TABLET 2 TAB PO (09:34)
[2023-06-01] MEDS: PANTOPRAZOLE 40 MG TABLET PO (09:34)
[2023-06-01] MEDS: HYDROcodone/acetaminophen (*CRX) 7.5-325 MG TABLET 1 TAB PO (09:36)
[2023-06-01 14:00] VITALS: BP 145/73; PULSE 73; RESP 18; TEMP 36.5; O2SAT 98
--- NOTE | 2023-06-01 14:04 | P.DS_ITS ---
DS: Admitting Diagnosis Discharge Date 06/01/23 Admitting Diagnosis 05/28/24 DS: Discharge Diagnosis Discharge Diagnosis (1) Closed fracture of proximal end of right femur: Qualifiers: Encounter type: initial encounter Qualified Code(s): S72.001A - Fracture of unspecified part of neck of right femur, initial encounter for closed fracture Code(s): S72.001A - Fracture of unspecified part of neck of right femur, initial encounter for closed fracture Status: Acute Plan Right hip fracture status post pinning. Patient has progressed slowly in the hospital and would benefit from rehab at this time. DS: Summary Hospital Course Hospital Course: Patient underwent pinning for femoral neck fracture right. She has progressed slowly had some pain issues initially however she is doing better now she needs therapy and help to get around at this time will send her to rehab now. Anticipate follow-up in the office in 2 weeks for sutures out. Time Spent with Patient Time attestation: Total time spent providing and/or coordinating discharge services: Exam Narrative: On exam she can wiggle her toes. Incision is clean. She has motion of her hip with mild pain. Eyes: General: appearance normal, both eyes and all related structures Neck: Neck: supple Resp: Effort & Inspection: normal respiratory effort Cardio: Rate: regular rate Rhythm: regular rhythm Discharge Plan Discharge Attending physician on discharge: Maury Harper Consulting providers: Priscilla Hunt; Juan Carlos Jackson Discharging Clinician: Maury Harper Patient Disposition: [facility] Activity: no straining and follow weight bearing status Diet: regular Discharge Instructions: Touch Weight Bearing Follow-up/Referrals: Maury Harper MD [Physician] - Delilah Pearl MD [Primary Care Provider] - Discharge Medications: New hydrocodone-acetaminophen 5-325 mg tablet 1 tablet PO Q4-6H PRN (Reason: pain) Qty: 30 0RF Continued esomeprazole magnesium 40 mg capsule,delayed release(DR/EC) 40 mg PO DAILY Qty: 90 3RF losartan 50 mg tablet 50 mg PO DAILY Qty: 90 3RF simvastatin 20 mg tablet 20 mg PO DAILY Qty: 90 3RF Date of admission: 05/29/23 17:57 Primary Care Provider: Delilah Pearl Admitting Provider: Maury Harper Attending physician on admission: Maury Harper Condition: Stable
--- NOTE | 2023-06-01 14:08 | P.PNIM_ITS ---
Progress Note: A&P Assessment and Plan (1) Closed fracture of proximal end of right femur: Qualifiers: Encounter type: initial encounter Qualified Code(s): S72.001A - Fracture of unspecified part of neck of right femur, initial encounter for closed fracture Code(s): S72.001A - Fracture of unspecified part of neck of right femur, initial encounter for closed fracture Status: Acute (2) Fall: Qualifiers: Encounter type: initial encounter Qualified Code(s): W19.XXXA - Unspecified fall, initial encounter Code(s): W19.XXXA - Unspecified fall, initial encounter Status: Acute (3) HTN (hypertension): Code(s): I10 - Essential (primary) hypertension Status: Inactive Plan * Patient underwent open reduction internal fixation right hip with a pinning, no surgical complication during the procedure * patient is afebrile, blood pressure stable * pain management * DVT prophylaxis with Xarelto per Orthopedic recommendation * continue wound care, therapy, disposition orthopedic surgery. * on room air * WBC 9.6 * procalcitonin 0.1 Subjective Date/time seen: 06/01/23 14:08 Interval history: Patient sitting up in chair this morning on exam after working with PT. Currently denying pain and eating and drinking without issue. Patient will be going to rehab facility at / and is medically stable today. Avila removed this morning. Review of Systems Review of Systems: All systems reviewed & are unremarkable except as noted in HPI and below (Subjective) Exam Narrative: GENERAL: Pleasant, in no acute distress. Well-nourished. - EYES: EOMI. PERRLA - HENT: Moist mucous membranes. - LUNGS: Lungs clear to auscultation - CARDIOVASCULAR: RRR. No murmur. No JVD . - ABDOMEN: Soft, non-tender and non-dist ended. No palpable masses. - EXTREMITIES: No edema. Peripheral puls es 2+. Non-tender. Dressing intact, clean and dry - NEUROLOGIC: No focal neurological defi cits. CN II-XII grossly intact. - PSYCHIATRIC: Alert and oriented x3. Ap propriate mood and affect. - SKIN: No rashes or lesions. Warm. - LYMPH: No cervical lymphadenopathy. Objective Data Vital Signs Vital Signs: Vital Signs - 24 hr 05/31/23 22:05 06/01/23 06:00 06/01/23 08:00 Temperature 97.9 F 98.4 F Pulse Rate 84 86 Respiratory Rate 20 20 Blood Pressure 152/77 H 135/63 Pulse Oximetry 96 95 Oxygen Delivery Room Air Intake/Output Intake/Output: Intake & Output 05/29/23 05/30/23 05/31/23 06/01/23 23:59 23:59 23:59 23:59 Intake Total 400 2388 1440 270 Output Total 458 435 2490 1100 Balance 240 5867 -116 -830 Meds/Results Medications: Active Medications Generic Name Dose Route Start Last Admin Trade Name Freq PRN Reason Stop Dose Admin Acetaminophen 500 mg 05/29/23 17:57 05/30/23 20:45 Acetaminophen 500 Mg Tablet
--- NOTE | 2023-06-01 14:08 | PM.IMPN ---
Progress Note: A&P Assessment and Plan (1) Closed fracture of proximal end of right femur: Qualifiers: Encounter type: initial encounter Qualified Code(s): S72.001A - Fracture of unspecified part of neck of right femur, initial encounter for closed fracture Code(s): S72.001A - Fracture of unspecified part of neck of right femur, initial encounter for closed fracture Status: Acute (2) Fall: Qualifiers: Encounter type: initial encounter Qualified Code(s): W19.XXXA - Unspecified fall, initial encounter Code(s): W19.XXXA - Unspecified fall, initial encounter Status: Acute (3) HTN (hypertension): Code(s): I10 - Essential (primary) hypertension Status: Inactive Plan Patient underwent open reduction internal fixation right hip with a pinning, no surgical complication during the procedure patient is afebrile, blood pressure stable pain management DVT prophylaxis with Xarelto per Orthopedic recommendation continue wound care, therapy, disposition orthopedic surgery. on room air WBC 9.6 procalcitonin 0.1 Subjective Date/time seen: 06/01/23 14:08 Interval history: Patient sitting up in chair this morning on exam after working with PT. Currently denying pain and eating and drinking without issue. Patient will be going to rehab facility at / and is medically stable today. Avila removed this morning. Review of Systems Review of Systems: All systems reviewed & are unremarkable except as noted in HPI and below (Subjective) Exam Narrative: GENERAL: Pleasant, in no acute distress. Well-nourished. - EYES: EOMI. PERRLA - HENT: Moist mucous membranes. - LUNGS: Lungs clear to auscultation - CARDIOVASCULAR: RRR. No murmur. No JVD. - ABDOMEN: Soft, non-tender and non-distended. No palpable masses. - EXTREMITIES: No edema. Peripheral pulses 2+. Non-tender. Dressing intact, clean and dry - NEUROLOGIC: No focal neurological deficits. CN II-XII grossly intact. - PSYCHIATRIC: Alert and oriented x3. Appropriate mood and affect. - SKIN: No rashes or lesions. Warm. - LYMPH: No cervical lymphadenopathy. Objective Data Vital Signs Vital Signs: Vital Signs - 24 hr 05/31/23 22:05 06/01/23 06:00 06/01/23 08:00 Temperature 97.9 F 98.4 F Pulse Rate 84 86 Respiratory Rate 20 20 Blood Pressure 152/77 H 135/63 Pulse Oximetry 96 95 Oxygen Delivery Room Air Intake/Output Intake/Output: Intake & Output 05/29/23 05/30/23 05/31/23 06/01/23 23:59 23:59 23:59 23:59 Intake Total 400 2388 1440 270 Output Total 338 918 1481 1100 Balance 240 7227 -275 -613 Meds/Results Medications: Active Medications Generic Name Dose Route Start Last Admin Trade Name Freq PRN Reason Stop Dose Admin Acetaminophen 500 mg 05/29/23 17:57 05/30/23 20:45 Acetaminophen 500 Mg Tablet PO 500 mg Q6H PRN Administration Pain Rated 1-3 Hydrocodone Bitart/Acetaminophen 1 tab 05/29/23 17:57 06/01/23 02:41 Hydrocodone/Acetaminophen (*Crx) 5-325 Mg Tablet PO 1 tab Q4H PRN Administration Pain Rated 4-6 Hydrocodone Bitart/Acetaminophen 1 tab 05/29/23 17:57 06/01/23 09:36 Hydrocodone/Acetaminophen (*Crx) 7.5-325 Mg Tablet PO 1 tab Q4H PRN Administration Pain Rated 7-10 Celecoxib 200 mg 05/30/23 08:00 06/01/23 09:34 Celecoxib 200 Mg Capsule PO 200 mg DAILY@0800 ALLISON Administration Famotidine 20 mg 05/29/23 21:00 06/01/23 09:34 Famotidine 20 Mg Tablet PO 20 mg Q12HR ALLISON Administration Hydromorphone HCl 1 mg 05/29/23 17:57 05/30/23 07:19 Hydromorphone Hcl Inj (*Crx) 1 Mg/Ml Syr IV PUSH 1 mg Q2H PRN Administration Breakthrough Pain Rated 7-10 or NPO Hydromorphone HCl 0.5 mg 05/29/23 17:57 Hydromorphone Hcl Inj (*Crx) 1 Mg/Ml Syr IV PUSH Q2H PRN Breakthrough Pain Rated 4-6 or NPO Ibuprofen 800 mg in 200 mls @ 400 mls/hr 05/29/23 17:57 05/30/23 06:28 Caldolor 800 Mg/200 Ml
== END 2023-06-01 15:20 | DRG 482 ==
LOC: ANHED 14:11 → ANHSURGERY 14:14 → ANH3MEDSUR 18:07
PROVIDERS: General Practice; Nurse Practitioner; Admitting Provider Orthopaedic Surgery; Emergency Provider Nurse Practitioner Family; PCP Family Medicine; Visit Provider Orthopaedic Surgery
PROC: 0QH634Z Insertion of Internal Fixation Device into Right Upper Femur, Percutaneous Approach (ICD-10-PCS; principal; 2023-05-29 15:00)
DX: S72.011A Unspecified intracapsular fracture of right femur, initial encounter for closed fracture (principal); W19.XXXA Unspecified fall, initial encounter; M17.11 Unilateral primary osteoarthritis, right knee; M16.12 Unilateral primary osteoarthritis, left hip; M81.0 Age-related osteoporosis without current pathological fracture; D50.9 Iron deficiency anemia, unspecified; E78.5 Hyperlipidemia, unspecified; I10 Essential (primary) hypertension; K21.9 Gastro-esophageal reflux disease without esophagitis; Z90.49 Acquired absence of other specified parts of digestive tract; Z88.0 Allergy status to penicillin
CPT/HCPCS: 36415; 70450; 71045; 73521; 74018; 80048; 80053; 84145; 85025; 85027; 85610; 85730; 86850; 86900; 86901; 96365; 96375; 97110; 97116; 97161; 97165; 97530; 97535; 99199; 99285; A9270; C1713; C1769; J0690; J1100; J1170; J1741; J1885; J2405; J2704; J3010; J7030; J7120

== ENCOUNTER 2024-02-02 13:56 | Outpatient (CLI) | payer MEDICARE, SELFPAY ==
[2024-02-02 14:58] LABS: Need Manual Microscopic Reviewed; Non Pathogenic Casts 0-2; RBC Urine 51-100 /hpf (0-2); Squamous Epithelial Cell Urine Occasional /hpf (Few); WBC Urine 0-5 /hpf (0-3)
[2024-02-02 14:59] LABS: Add Urine Microscopic? YES; Appearance Urine Cloudy (Clear); Blood Urine Negative (Negative); Color Urine Red (Yellow); Glucose Urine UA Negative (Negative); Ketones Urine Negative (Negative); Nitrate Urine Positive (Negative); Protein Urine 1+ mg/dL (Negative); Specific Grav Ur 1.025 (1.001-1.035)
[2024-02-02 15:02] LABS: Bacteria Urine 1+ /hpf
== END 2024-02-02 13:57 | disposition home or self-care (01) ==
PROVIDERS: PCP Family Medicine; Visit Provider Family Medicine
DX: R30.0 Dysuria (principal)
CPT/HCPCS: 81001; 87086; 87186